=== PATIENT | female | born 1960 | race Caucasian/White ===

== ENCOUNTER 2016-07-25 12:41 | Emergency (ER) | payer MEDICARE, MEDICAID ==
[2016-07-25] MEDS ORDERED: IPRATROPIUM/ALBUTEROL 0.5-2.5 MG/3 ML AMPUL NEB ONE (12:57)
--- NOTE | 2016-07-25 12:58 | ER Document Report ---
ED Medical Screen (RME) - General Stated Complaint: DIFFICULTY BREATHING Notes: onset: monday difficulty breathing, SOB and, congestion, nonproductive cough, wheezing denies h/o asthma/COPD - Related Data Allergies/Adverse Reactions: No Known Allergies Allergy (Verified 07/25/16 12:54)
--- NOTE | 2016-07-25 14:48 | ER Document Report ---
ED Respiratory Problem - General Mode of Arrival: Ambulatory Information source: Patient TRAVEL OUTSIDE OF THE [place] IN LAST 30 DAYS: No - HPI Patient complains to provider of: Cough, Other - congestion Onset: Other - x2 days Duration: Worse/persistent Quality of pain: No pain Associated symptoms: Other - see narrative <CYRIL OCAMPO - Last Filed: 07/25/16 15:57> <ISRAEL BETANCOURT - Last Filed: 07/28/16 01:21> - General Chief Complaint: Breathing Difficulty Stated Complaint: DIFFICULTY BREATHING Notes: Patient is a 55-year-old female that presents to the emergency department today with complaints of nasal congestion with a cough for 2 days. Patient states she has tried TheraFlu cold and [place] cold with minimal relief. Patient states she is not sure when her last menstrual period was but she is still having periods monthly. Patient states her cough worsens at night. Patient states she thinks she is wheezing. Patient denies any sick contacts, fevers, history of asthma, nausea, vomiting, or diarrhea. Patient states none of the dswh-sst-rxgnffz medication she is taking had a decongestant in them. (CYRIL OCAMPO) - Related Data Allergies/Adverse Reactions: No Known Allergies Allergy (Verified 07/25/16 12:54) Past Medical History - General Information source: Patient - Social History Smoking Status: Never Smoker Cigarette use (# per day): No Chew tobacco use (# tins/day): No Frequency of alcohol use: None Drug Abuse: None Lives with: Spouse/Significant other Family History: Reviewed & Not Pertinent Patient has suicidal ideation: No Patient has homicidal ideation: No Pulmonary Medical History: Denies: Hx Asthma Neurological Medical History: Reports: Hx Migraine Surgical Hx: Negative <CYRIL OCAMPO - Last Filed: 07/25/16 15:57> Review of Systems - Review of Systems Constitutional: denies: Fever EENT: See HPI, Nose congestion, Nose discharge, Sinus discharge Cardiovascular: No symptoms reported Respiratory: See HPI, Cough, Wheezing Gastrointestinal: denies: Diarrhea, Nausea, Vomiting Genitourinary: No symptoms reported Female Genitourinary: No symptoms reported Musculoskeletal: No symptoms reported Skin: No symptoms reported Hematologic/Lymphatic: No symptoms reported Neurological/Psychological: No symptoms reported -: Yes All other systems reviewed and negative <CYRIL OCAMPO - Last Filed: 07/25/16 15:57> Physical Exam <CYRIL OCAMPO - Last Filed: 07/25/16 15:57> <ISRAEL BETANCOURT - Last Filed: 07/28/16 01:21> - Vital signs Vitals: Temp Pulse Resp BP Pulse Ox 98.2 F 110 H 24 H 143/85 H 96 07/25/16 12:56 07/25/16 12:56 07/25/16 12:56 07/25/16 12:56 07/25/16 12:56 (CYRIL OCAMPO) (ISRAEL BETANCOURT) - Notes Notes: Physical Exam: General: Alert, appears well. HEENT: Normocephalic. Atraumatic. PERRL. Extraocular movements intact. Oropharynx clear. Sinus congestion, clear rhinorrhea. No posterior pharynx erythema or exudate. Neck: Supple. Non-tender. Respiratory: No respiratory distress. Expiratory wheeze bilaterally. Cardiovascular: Regular rate and rhythm. Abdominal: Normal Inspection. Non-tender. No distension. Normal Bowel Sounds. Back: Non-tender. No deformity or step off. Extremities: Moves all four extremities. Upper extremities: Normal inspection. Normal ROM. Lower extremities: Normal inspection. No edema. Normal ROM. Neurological: Normal cognition. AAOx4. Normal speech. Psychological: Normal affect. Normal Mood. Skin: Warm. Dry. Normal color. (CYRIL OCAMPO) Course - Laboratory Result Diagrams: 07/25/16 15:30 07/25/16 15:30 <DAMARISJEREMÍASCYRIL - Last Filed: 07/25/16 15:57> - Laboratory Result Diagrams: 07/25/16 15:30 07/25/16 15:30 <ISRAEL BETANCOURT - Last Filed: 07/28/16 01:21> - Re-evaluation Re-evalutation: 07/25/16 16:27 I personally performed the services described in the documentation, reviewed and edited the documentation which was dictated to my scribe in my presence, and it accurately records my words and actions. Patient presents emergency department with a 3-4 day history of cough nasal congestion and wheezing. Denies any underlying medical problems. Is wheezing on examination after breathing treatment improved. No history of asthma COPD or CHF. Says she is very nasally congestion when she lays down she can't breathe. No headache blurred vision or double vision no fever or chills earache did have a sore throat couple days ago which is improved. No difficulty breathing or swallowing no chest pain pressure recent travel history of surgery mobilization DVT or pulmonary emboli. Initially on examination she was slightly tachycardic in the Neck. Chest x-ray is negative laboratory evaluation is negative. Well- appearing nontoxic no acute distress oxygen is normal no clinical concerns for pulmonary embolus. We will DC on albuterol inhaler steroids prednisone one day follow-up primary care physician structures to stop smoking discussed reasons for ED return sooner (ISRAEL BETANCOURT) - Vital Signs Vital signs: Temp Pulse Resp BP Pulse Ox 98.1 F 97 24 H 128/85 H 92 07/25/16 16:31 07/25/16 16:31 07/25/16 12:56 07/25/16 16:31 07/25/16 16:31 (CYRIL OCAMPO) (ISRAEL BETANCOURT) - Laboratory Laboratory results interpreted by me: 07/25/16 15:30 Seg Neutrophils % 82.8 H Lymphocytes % 6.5 L Absolute Neutrophils 8.5 H (ISRAEL BETANCOURT) Discharge <CYRIL OCAMPO - Last Filed: 07/25/16 15:57> <ISRAEL BETANCOURT - Last Filed: 07/28/16 01:21> - Discharge Clinical Impression: Upper respiratory infection Qualifiers: URI type: unspecified viral URI Qualified Code(s): J06.9 - Acute upper respiratory infection, unspecified Condition: Stable Disposition: HOME, SELF-CARE Additional Instructions: Upper Respiratory Illness You have a viral infection of the respiratory passages -- a "cold." This common infection causes nasal congestion, drainage, and often sore throat and cough. It is caused by a virus and is highly contagious. The disease usually lasts a week or more, though the worst symptoms are usually over in 3 or 4 days. There is no "cure" for the viral infection -- it must run its course. If there is a complication, such as bacterial infection in the nose, sinuses, middle ear, or bronchial tubes, antibiotics may be required, but antibiotics won 't affect the virus. If you smoke, you should STOP!! Drink plenty of fluids. A humidifier may help. An expectorant medication or decongestant may make you more comfortable. Use acetaminophen or ibuprofen for fever or aches. See the doctor if fever persists over two or three days, if there is any significant worsening of your symptoms, or if you simply fail to improve as expected. Prescriptions: Albuterol Sulfate [Proair HFA Inhalation Aerosol 8.5 gm MDI] 2 puff IH Q4H PRN # 1 mdi PRN Reason: Prednisone [Deltasone 20 mg Tablet] 3 tab PO DAILY 5 Days Referrals: [facility] [Provider Group] - Follow up as needed (Follow-up for recheck and reevaluation tomorrow return for increasing worsening or new symptoms) Scribe Documentation <CYRIL OCAMPO - Last Filed: 07/25/16 15:57> <ISRAEL BETANCOURT - Last Filed: 07/28/16 01:21> - Scribe Written by Scribe:: ISRAEL BETANCOURT DO, SCRIBE 07/25/16 [id number] Acting as scribe for: Bassam (CYRIL OCAMPO) (ISRAEL BETANCOURT)
[2016-07-25 15:49] LABS: ABSOLUTE BASOPHILS # (AUTO) 0.1 10^3/uL (0.0-0.2); ABSOLUTE EOSINOPHILS # (AUTO) 0.1 10^3/uL (0.0-0.6); ABSOLUTE LYMPHOCYTES (AUTO) 0.7 10^3/uL (0.5-4.7); ABSOLUTE MONOCYTES (AUTO) 0.9 10^3/uL (0.1-1.4); ABSOLUTE NEUT (AUTO) 8.5 10^3/uL (1.7-8.2); BASOPHILS % (AUTO) 0.7 % (0-2); EOSINOPHILS % (AUTO) 1.2 % (0-6); HEMATOCRIT 40.2 % (36.0-47.0); HEMOGLOBIN 13.1 g/dL (12.0-15.5); HGB HCT DIFFERENCE -0.9; LYMPHOCYTES % (AUTO) 6.5 % (13-45); MEAN CORPUSCULAR HEMOGLOBIN 27.5 pg (27.0-33.4); MEAN CORPUSCULAR HGB CONC 32.6 g/dL (32.0-36.0); MEAN CORPUSCULAR VOLUME 84 fl (80-97); MONOCYTES % (AUTO) 8.8 % (3-13); RED BLOOD COUNT 4.77 10^6/uL (3.72-5.28); SEGMENTED NEUTROPHILS % (AUTO) 82.8 % (42-78); WHITE BLOOD COUNT 10.3 10^3/uL (4.0-10.5)
[2016-07-25 16:06] LABS: ALANINE AMINOTRANSFERASE 47 U/L (9-52); ALKALINE PHOSPHATASE 110 U/L (38-126); ANION GAP 12 (5-19); ASPARTATE AMINO TRANSFERASE 24 U/L (14-36); BILIRUBIN,TOTAL 0.4 mg/dL (0.2-1.3); BLOOD UREA NITROGEN 10 mg/dL (7-20); CALCIUM 9.8 mg/dL (8.4-10.2); CARBON DIOXIDE 28 mmol/L (22-30); CHLORIDE 99 mmol/L (98-107); CREATININE RESULT 0.68 mg/dL (0.52-1.25); GLUCOSE 109 mg/dL (75-110); POTASSIUM 4.3 mmol/L (3.6-5.0); SODIUM 139.3 mmol/L (137-145); TOTAL PROTEIN 6.8 g/dL (6.3-8.2)
[2016-07-25 16:39] VITALS: BP 128/85
== END 2016-07-25 16:41 | disposition home or self-care (01) ==
LOC: ER 12:41
DX: J06.9 Acute upper respiratory infection, unspecified (principal); B97.89 Other viral agents as the cause of diseases classified elsewhere; R09.81 Nasal congestion; R05 Cough; J34.89 Other specified disorders of nose and nasal sinuses; R06.2 Wheezing
CPT/HCPCS: 94640; 99285; 36415; 85025; 80053; 71020; A9270; J7620

== ENCOUNTER 2018-02-03 13:53 | Inpatient (IN) | payer MEDICARE, MEDICAID ==
[2018-02-03] MEDS ORDERED: ONDANSETRON HCL INJ/PF 4 MG/2 ML SDV IV ONE (15:02)
--- NOTE | 2018-02-03 15:03 | ER Document Report ---
ED General - General Chief Complaint: Ear Pain Stated Complaint: EAR PAIN Time Seen by Provider: 02/03/18 14:52 TRAVEL OUTSIDE OF THE [place] IN LAST 30 DAYS: No - HPI Notes: Patient is a 57-year-old female with a history of GERD who presents to the ED with spouse complaining of weakness, pallor, sweats, left ear pain, and ?abd pain that began when she was at work a couple hours ago. Spouse states that she is acting very weak and had to pick her up from work. Spouse states that she was acting normally yesterday. Patient states that her whole body hurts, but primarily focuses to the abdomen and to her left ear. She has not been swimming recently. Denies any drug allergies, smoking, IV drug use. Pt is being a poor historian currently, and b/w her and her spouse denies any headache , fever, head injury, neck pain, changes in vision/mentation/hearing, URI, sore throat, chest pain, cough, shortness of breath, dyspnea, dysuria, hematuria, loss of control of bowel or bladder, numbness/tingling, muscle paralysis, or rash. - Related Data Allergies/Adverse Reactions: No Known Allergies Allergy (Verified 02/03/18 13:54) Past Medical History - Social History Smoking Status: Never Smoker Family History: Reviewed & Not Pertinent Pulmonary Medical History: Denies: Hx Asthma Neurological Medical History: Reports: Hx Migraine Renal/ Medical History: Denies: Hx Peritoneal Dialysis Past Surgical History: Reports: Hx Orthopedic Surgery Review of Systems - Review of Systems -: Yes All other systems reviewed and negative Physical Exam - Vital signs Vitals: Temp Pulse Resp BP Pulse Ox 97.6 F 108 H 24 H 107/63 95 02/03/18 14:12 02/03/18 14:12 02/03/18 14:12 02/03/18 14:12 02/03/18 14:12 - Notes Notes: PHYSICAL EXAMINATION: accompanied by female nurse GENERAL: pt is diaphoretic and pale HEAD: Atraumatic, normocephalic. Non-tender. No paige sign EYES: Pupils equal round and reactive to light, extraocular movements intact, sclera anicteric, conjunctiva are normal. No raccoon eyes/entrapment. ENT: TM's intact b/l without erythema, fluid, or perforation. + mild tenderness and swelling within the EAC, lt. Rt EAC wnl. Nares patent and without discharge. oropharynx clear without exudates. No tonsilar hypertrophy or erythema. Moist mucous membranes. No sinus tenderness. No hemotympanum NECK: Normal range of motion, supple without lymphadenopathy. No rigidity/ meningismus. No midline tenderness. Chest: No flail chest. equal rise/fall. LUNGS: Breath sounds clear to auscultation bilaterally and equal. No wheezes rales or rhonchi. HEART: Regular rate and rhythm without murmurs, rubs, gallops. ABDOMEN: Soft, nontender, nondistended abdomen. No guarding, no rebound. No masses appreciated. Normal bowel sounds present. Musculoskeletal: Ext's b/l: FROM to passive/active. Strength 5+/5. No deficits noted. No bony tenderness of extremities. Extremities: No cyanosis, clubbing, or edema b/l. Peripheral pulses 2+. Capillary refill less than 2 seconds. NEUROLOGICAL: GCS 15. Cranial nerves grossly intact. Speech is soft, but understandable w/o obvious slurring. Normal sensory, motor exams. Reflexes 2+ b/l. pt able to walk 3-4 steps in the exam room. PSYCH: Normal mood, normal affect. SKIN: pallor Course - Re-evaluation Re-evalutation: 02/03/18 15:17 Upon immediate evaluation, it was noted pt to be pallor and diaphoretic. It is currently difficult to get straight answers from the patient at this time. I did consult immediately with Dr. Kwong who also came to eval the patient. We will perform a complete work up and have her go to CT for the head once IV access is obtained. Rectal temp also ordered. 02/03/18 16:52 CT neg/CXR neg. Dr. Kwong and myself evaluated the patient again and were able to have her ambulate in the room. Core temp continues to be hypothermic by rectal temp and a Jak hugger and warm fluids have been running. We currently have mild AMS with hypothermia w/o obvious source so we will be performing a spinal tap. Rocephin has been ordered and cultures are pending. 02/03/18 18:30 Dr. Kwong attempted spinal tap x2 unsuccessfully. he called anesthesiology who came and performed a spinal tap, but was only able to get a very small amount in 1 tube. Lab is still able to perform a C&S, gram stain, and cell count. Reviewed case with Dr. Kwong again and we will plan for admit. Lab work, urine, and imaging generally unremarkable aside from elevated WBC with left shift, no bands. 02/03/18 19:24 Dr. Tee accepted patient to [facility]. Added TSH and 2nd trop to labs. - Vital Signs Vital signs: Temp Pulse Resp BP Pulse Ox 98.5 F 108 H 22 H 120/82 94 02/03/18 19:01 02/03/18 14:12 02/03/18 19:01 02/03/18 19:00 02/03/18 19:01 - Laboratory Result Diagrams: 02/03/18 15:16 02/03/18 15:16 Laboratory results interpreted by me: 02/03/18 02/03/18 02/03/18 14:48 15:16 15:16 WBC 15.8 H RDW 14.3 H Seg Neutrophils % 80.4 H Lymphocytes % 12.1 L Absolute Neutrophils 12.7 H Carbon Dioxide 20 L Glucose 169 H POC Glucose 165 H Calcium 10.3 H Salicylates Acetaminophen 02/03/18 15:16 WBC RDW Seg Neutrophils % Lymphocytes % Absolute Neutrophils Carbon Dioxide Glucose POC Glucose Calcium Salicylates < 1.0 L Acetaminophen < 10 L Discharge - Discharge Clinical Impression: Weakness Altered mental status Qualifiers: Altered mental status type: unspecified Qualified Code(s): R41.82 - Altered mental status, unspecified Hypothermia Qualifiers: Encounter type: initial encounter Qualified Code(s): T68.XXXA - Hypothermia, initial encounter Condition: Stable Disposition: ADMITTED INPATIENT Admitting Provider: Hospitalist - Dr. Tee Unit Admitted: [facility]
[2018-02-03 15:37] LABS: ABSOLUTE BASOPHILS # (AUTO) 0.1 10^3/uL (0.0-0.2); ABSOLUTE EOSINOPHILS # (AUTO) 0.1 10^3/uL (0.0-0.6); ABSOLUTE LYMPHOCYTES (AUTO) 1.9 10^3/uL (0.5-4.7); ABSOLUTE NEUT (AUTO) 12.7 10^3/uL (1.7-8.2); BASOPHILS % (AUTO) 0.7 % (0-2); EOSINOPHILS % (AUTO) 0.6 % (0-6); HEMATOCRIT 41.5 % (36.0-47.0); LYMPHOCYTES % (AUTO) 12.1 % (13-45); MEAN CORPUSCULAR HEMOGLOBIN 27.7 pg (27.0-33.4); MEAN CORPUSCULAR HGB CONC 33.6 g/dL (32.0-36.0); MEAN CORPUSCULAR VOLUME 83 fl (80-97); MONOCYTES % (AUTO) 6.2 % (3-13); PLATELET COUNT 301 10^3/uL (150-450); RED BLOOD COUNT 5.03 10^6/uL (3.72-5.28); RED CELL DISTRIBUTION WIDTH 14.3 % (11.5-14.0); SEGMENTED NEUTROPHILS % (AUTO) 80.4 % (42-78); TOTAL CELLS COUNTED % (AUTO) 100 %; WHITE BLOOD COUNT 15.8 10^3/uL (4.0-10.5)
[2018-02-03 15:38] LABS: VENOUS BLOOD BASE EXCESS -3.4 mmol/L; VENOUS BLOOD HCO3 21.4 mmol/L (20-32); VENOUS BLOOD PCO2 38.1 mmHg (35-63); VENOUS BLOOD PH 7.37 (7.30-7.42)
--- NOTE | 2018-02-03 15:44 | RADIOLOGY REPORT (SQ) ---
EXAM DESCRIPTION: CHEST SINGLE VIEW COMPLETED DATE/TIME: 02/03/2018 3:34 pm REASON FOR STUDY: weakness COMPARISON: 07/25/2016 EXAM PARAMETERS: NUMBER OF VIEWS: One view. TECHNIQUE: Single frontal radiographic view of the chest acquired. RADIATION DOSE: NA LIMITATIONS: None. FINDINGS: LUNGS AND PLEURA: No acute opacities, masses or pneumothorax. No pleural effusion. MEDIASTINUM AND HILAR STRUCTURES: Stable. HEART AND VASCULAR STRUCTURES: Heart normal in size. Normal vasculature. BONES: No acute findings. HARDWARE: None in the chest. OTHER: No other significant finding. IMPRESSION: NO ACUTE RADIOGRAPHIC FINDING IN THE CHEST. TECHNICAL DOCUMENTATION: JOB ID: [id number] [place]-72 2010 [employer]- All Rights Reserved Reading location - IP/workstation name: [email or web address]
[2018-02-03 15:45] LABS: INTERNATIONAL RATION (INR) 0.88; PROTHROMBIN TIME 12.4 SEC (11.4-15.4)
[2018-02-03 15:46] LABS: PARTIAL THROMBOPLASTIN TIME 27.5 SEC (23.5-35.8)
--- NOTE | 2018-02-03 15:48 | RADIOLOGY REPORT (SQ) ---
EXAM DESCRIPTION: CT HEAD WITHOUT COMPLETED DATE/TIME: 02/03/2018 3:36 pm REASON FOR STUDY: weakness, diaphoresis COMPARISON: None. TECHNIQUE: Axial images acquired through the brain without intravenous contrast. Images reviewed wi th bone, brain and subdural windows. Images stored on PACS. All CT scanners at this facility use dose modulation, iterative reconstruction, and/or weight based d osing when appropriate to reduce radiation dose to as low as reasonably achievable (ALARA). [facility]: Dose Right [facility]: CareDose [facility]: Dose Right [facility]: Teradose 4D [facility]: Smart K[employer] RADIATION DOSE: CT Rad equipment meets quality standard of care and radiation dose reduction techniq ues were employed. CTDIvol: 53.2 mGy. DLP: 964 mGy-cm. mGy. LIMITATIONS: None. FINDINGS: VENTRICLES: Normal size and contour. CEREBRUM: No masses. No hemorrhage. No midline shift. No evidence for acute infarction. Normal gra y/white matter differentiation. Age-appropriate white matter. CEREBELLUM: No masses. No hemorrhage. No alteration of density. No evidence for acute infarction. EXTRAAXIAL SPACES: No fluid collections. No masses. ORBITS AND GLOBE: No intra- or extraconal masses. Normal contour of globe without masses. CALVARIUM: No fracture. PARANASAL SINUSES: No fluid or mucosal thickening. SOFT TISSUES: No mass or hematoma. OTHER: No other significant finding. IMPRESSION: No acute intracranial findings. EVIDENCE OF ACUTE STROKE: NO. COMMENT: Quality ID # [id number]: Final reports with documentation of one or more dose reduction techniques (e.g., Automated exposure control, adjustment of the mA and/or kV according to patient size, use of iterative reconstruction technique) TECHNICAL DOCUMENTATION: JOB ID: [id number] [place]-[id number] 2010 [employer]- All Rights Reserved Reading location - IP/workstation name: [email or web address]
[2018-02-03] MEDS: NORMAL SALINE 1000 ML 1,000 ML IV PRN ×3 (15:54→23:36)
[2018-02-03 15:59] LABS: ALANINE AMINOTRANSFERASE 32 U/L (9-52); ALBUMIN 4.5 g/dL (3.5-5.0); ALKALINE PHOSPHATASE 105 U/L (38-126); ANION GAP 16 (5-19); ASPARTATE AMINO TRANSFERASE 19 U/L (14-36); BILIRUBIN,DIRECT 0.3 mg/dL (0.0-0.4); BILIRUBIN,TOTAL 0.5 mg/dL (0.2-1.3); BLOOD UREA NITROGEN 18 mg/dL (7-20); CALCIUM 10.3 mg/dL (8.4-10.2); CARBON DIOXIDE 20 mmol/L (22-30); CHLORIDE 104 mmol/L (98-107); CREATINE KINASE 51 U/L (30-135); GLUCOSE 169 mg/dL (75-110); LIPASE 116.6 U/L (23-300); POTASSIUM 4.2 mmol/L (3.6-5.0); SODIUM 140.4 mmol/L (137-145); TOTAL PROTEIN 7.3 g/dL (6.3-8.2)
[2018-02-03 16:08] LABS: CREATINE KINASE MB 0.48 ng/mL (<4.55); TROPONIN I < 0.012 ng/mL
[2018-02-03 16:13] LABS: APPEARANCE,URINE SLIGHTLY-CLOUDY; BILIRUBIN,URINE NEGATIVE (NEGATIVE); COLOR,URINE YELLOW; GLUCOSE, URINE NEGATIVE (NEGATIVE); KETONES,URINE NEGATIVE (NEGATIVE); LEUKOCYTE ESTERASE,URINE NEGATIVE (NEGATIVE); NITRITE,URINE NEGATIVE (NEGATIVE); PROTEIN,URINE NEGATIVE (NEGATIVE); URINE SPECIFIC GRAVITY 1.016; UROBILINOGEN,URINE NEGATIVE mg/dL (<2.0)
[2018-02-03 16:25] LABS: URINE AMPHETAMINES SCREEN NEGATIVE; URINE BARBITURATES SCREEN NEGATIVE; URINE BENZODIAZEPINES SCREEN NEGATIVE; URINE COCAINE SCREEN NEGATIVE; URINE MARIJUANA (THC) SCREEN UNCONFIRMED POSITIVE; URINE METHADONE SCREEN NEGATIVE; URINE PHENCYCLIDINE SCREEN NEGATIVE
[2018-02-03] MEDS ORDERED: LIDOCAINE 1% INJ-PF (10 MG/ML) 30 ML SDV INJ ONE (16:50)
[2018-02-03] MEDS ORDERED: CEFTRIAXONE 1 GM/D5W RTU 1 GM/50 ML RTUPB IV ONE (16:51)
[2018-02-03 17:01] LABS: ACETAMINOPHEN < 10 ug/mL (10-30); SALICYLATE < 1.0 mg/dL (2.0-20.0)
[2018-02-03 19:25] LABS: CSF TUBE NUMBER 4
[2018-02-03 19:26] LABS: APPEARANCE TUBE 4 CLEAR; COLOR TUBE 4 COLORLESS
[2018-02-03 19:27] LABS: CSF TOTAL VOLUME 0.2 CC; VOLUME TUBE 4 0.2 CC
[2018-02-03 19:40] LABS: RED BLOOD CELL,CSF 950 /uL (0-10); WHITE BLOOD CELL,CSF 9 /uL (0-5)
[2018-02-03] MEDS ORDERED: CEFTRIAXONE INJ 1000 MG VIAL ONE (20:04)
[2018-02-03] MEDS ORDERED: HEPARIN SOD (PORCINE) 5,000 UNIT/ML 1 ML SYRINGE SUBCUT SCH (22:00)
--- NOTE | 2018-02-03 22:28 | PDOC H&P ---
History of Present Illness Admission Date/PCP: 02/03/18 19:54 Patient complains of: Feeling weak History of Present Illness: ABNER RAYMOND is a 57 year old who has developmental delay. She cleans houses for a living. Today while on her knees cleaning her house she started to feel sweaty. She tells me that she was going in and out of cold houses into the hot outdoors and she feels like that made her dizzy. When she began to feel sweaty her boss called her who came to pick her up. He got her into the car to bring her to the hospital. He states that she was pale, sweaty appearing, not able to speak normally. She never lost consciousness. In the ER she was found to be hypothermic. Her complaints to the ER and to me have been nonspecific. She is stating that she just does not feel good. She does not identify any particular area of pain. All of the events of today. She feels generally weak. Her states that her speech was less than normal and also not is comprehensible is normal but he feels that it is getting back to normal now. The ER has performed a number of tests and studies and there has been no identifying culprit for her symptoms. She does have an elevated white blood cell count. Her vitals have normalized. She is starting to speak more normally. She will be admitted to the hospitalist service for acute encephalopathy and hypothermia. Past Medical History Cardiac Medical History: Denies: Congestive Heart Failure, Coronary Artery Disease Pulmonary Medical History: Denies: Asthma, Chronic Obstructive Pulmonary Disease (COPD) EENT Medical History: Reports: None Neurological Medical History: Reports: Migraine Endocrine Medical History: Reports: None Renal/ Medical History: Denies: Chronic Kidney Disease Malignancy Medical History: Reports: None GI Medical History: Reports: Gastroesophageal Reflux Disease Musculoskeltal Medical History: Reports: None Skin Medical History: Reports: None Psychiatric Medical History: Denies: Substance Abuse, Tobacco Dependency Traumatic Medical History: Reports: None Hematology: Reports: None Infectious Medical History: Reports: None Past Surgical History Past Surgical History: Reports: Orthopedic Surgery - Patient had some type of back surgery for herniated disc Social History Information Source: Patient, Legal Guardian Lives with: Family Smoking Status: Never Smoker Frequency of Alcohol Use: None Hx Recreational Drug Use: No Drugs: None Hx Prescription Drug Abuse: No Past Social History Note: Patient has developmental delay. She has a long-standing partner/boyfriend who is also her legal guardian mother they met in [place]. He states that they are unable to get because the spouses that both of them were formerly with will not divorce them. Patient comes from [place] and it seems that most of her family is still there. Her life partner, Esa Gruber, is from this area and that is why they moved back to [place]. She works as a campus manager. She has 1 daughter in her 20s and they do not have much information about her at this time. - Advance Directive Resuscitation Status: Full Code Surrogate healthcare decision maker:: Patient name is Esa Gruber as her healthcare proxy. His phone number is [phone] Family History Parental Family History Reviewed: Yes - Mother with some type of cancer. Father lives in [place],? health status Children Family History Reviewed: Yes - 1 daughter in her 20s that they think is healthy, they do not have much information about her Sibling(s) Family History Reviewed.: Yes - One sister has Downs syndrome and lives in [place] Medication/Allergy Home Medications: Albuterol Sulfate [Proair HFA Inhalation Aerosol 8.5 gm MDI] 2 puff IH Q4H PRN # 1 mdi 07/25/16 Prednisone [Deltasone 20 mg Tablet] 3 tab PO DAILY 5 Days tablet 07/25/16 Allergies/Adverse Reactions: hydrocodone Allergy (Intermediate, Verified 02/03/18 22:18) Itching Review of Systems Constitutional: PRESENT: chills, fatigue Eyes: ABSENT: visual disturbances Ears: PRESENT: hearing changes Nose, Mouth, and Throat: ABSENT: sore throat Cardiovascular: ABSENT: chest pain, dyspnea on exertion, edema, orthropnea, palpitations Respiratory: ABSENT: cough, dyspnea Gastrointestinal: ABSENT: abdominal pain, nausea, vomiting Genitourinary: ABSENT: dysuria Musculoskeletal: PRESENT: muscle weakness. ABSENT: back pain Integumentary: PRESENT: diaphoresis. ABSENT: erythema, lesions Neurological: PRESENT: abnormal speech. ABSENT: abnormal movements, convulsions , dizziness, frequent falls, numbness, syncope, tingling Psychiatric: ABSENT: anxiety Endocrine: ABSENT: cold intolerance, heat intolerance Hematologic/Lymphatic: ABSENT: easy bleeding, easy bruising Physical Exam Vital Signs: Temp Pulse Resp BP Pulse Ox 98.4 F 108 H 27 H 122/88 H 95 02/03/18 22:01 02/03/18 14:12 02/03/18 22:01 02/03/18 22:00 02/03/18 22:01 General appearance: PRESENT: no acute distress, cooperative, obese Head exam: PRESENT: atraumatic, normocephalic Eye exam: PRESENT: EOMI. ABSENT: conjunctival injection, scleral icterus Ear exam: PRESENT: normal external ear exam Mouth exam: PRESENT: moist, tongue midline Respiratory exam: PRESENT: clear to auscultation jb, unlabored. ABSENT: rales , rhonchi, wheezes Cardiovascular exam: PRESENT: RRR. ABSENT: diastolic murmur, systolic murmur Pulses: PRESENT: normal radial pulses GI/Abdominal exam: PRESENT: normal bowel sounds, soft. ABSENT: distended, firm , guarding, tenderness Rectal exam: ABSENT: deferred Gentrourinary exam: ABSENT: indwelling catheter Extremities exam: ABSENT: pedal edema Musculoskeletal exam: ABSENT: deformity Neurological exam: PRESENT: alert, awake, oriented to person, oriented to place , oriented to situation Psychiatric exam: PRESENT: appropriate affect. ABSENT: anxious Skin exam: PRESENT: dry, intact, warm Results Laboratory Results: 02/03/18 21:20 Troponin I < 0.012 Impressions: Chest X-Ray 02/03/18 14:58 IMPRESSION: NO ACUTE RADIOGRAPHIC FINDING IN THE CHEST. Head CT 02/03/18 15:09 IMPRESSION: No acute intracranial findings. EVIDENCE OF ACUTE STROKE: NO. Assessment & Plan - Diagnosis (1) Acute encephalopathy Is this a current diagnosis for this admission?: Yes Plan: Patient had acute mental status change, unknown whether this was a toxic or metabolic insult. It is also possible that the patient had a vasovagal episode. Lab studies have not revealed a clear etiology of her changes. Does have a leukocytosis. CT scan of the head was negative. Chest x-ray negative for acute pulmonary process. LP, urine culture, blood cultures all pending. Patient's mental status is coming back to normal per her . She does remember the events of today. We will continue to fluid hydrate her and as studies come back we will alter therapy based on results. Now she is being admitted to the stepdown unit for close monitoring. (2) Hypothermia Qualifiers: Encounter type: initial encounter Qualified Code(s): T68.XXXA - Hypothermia , initial encounter Is this a current diagnosis for this admission?: Yes Plan: Patient is now normothermic. We will monitor her temperature closely. She is receiving IV fluids periods blood and urine cultures pending, LP pending. She is on telemetry. Not entirely clear etiology of hypothermia at this time. (3) Weakness Is this a current diagnosis for this admission?: Yes Plan: Not entirely clear etiology. CT scan of the head negative for acute changes. Will order MRI brain to assess for lesions not visible on CT scan. Strength is returning. There is no focal neurologic deficit. She is able to move all extremities spontaneously. Per speech is returning to normal. - Time Time Spent: 50 to 70 Minutes Medications reviewed and adjusted accordingly: Yes Anticipated discharge: Home - Inpatient Certification Based on my medical assessment, after consideration of the patient's comorbidities, presenting symptoms, or acuity I expect that the services needed warrant INPATIENT care.: Yes I certify that my determination is in accordance with my understanding of Medicare's requirements for reasonable and necessary INPATIENT services [42 CFR 412.3e].: Yes Medical Necessity: Need Close Monitoring Due to Risk of Patient Decompensation, Need For IV Fluids
[2018-02-04 00:48] LABS: HEMATOCRIT 36.5 % (36.0-47.0); HEMOGLOBIN 12.3 g/dL (12.0-15.5); MEAN CORPUSCULAR HEMOGLOBIN 27.8 pg (27.0-33.4); MEAN CORPUSCULAR HGB CONC 33.9 g/dL (32.0-36.0); MEAN CORPUSCULAR VOLUME 82 fl (80-97); PLATELET COUNT 265 10^3/uL (150-450); RED BLOOD COUNT 4.45 10^6/uL (3.72-5.28); RED CELL DISTRIBUTION WIDTH 14.2 % (11.5-14.0); WHITE BLOOD COUNT 15.9 10^3/uL (4.0-10.5)
--- NOTE | 2018-02-04 03:10 | EKG REPORT ---
SEVERITY:- BORDERLINE ECG - SINUS RHYTHM BORDERLINE T ABNORMALITIES, ANTERIOR LEADS BORDERLINE PROLONGED QT INTERVAL : Confirmed by: Aimee Gonsales MD 04-Feb-2018 03:09:11
[2018-02-04] MEDS ORDERED: ONDANSETRON HCL INJ/PF 4 MG/2 ML SDV ONE (04:11)
--- NOTE | 2018-02-04 04:41 | RADIOLOGY REPORT (SQ) ---
EXAM DESCRIPTION: CT HEAD WITHOUT IV CONTRAST COMPLETED DATE/TME: 02/04/2018 00:00 CLINICAL HISTORY: Weakness COMPARISON: 02/03/2018 TECHNIQUE: Axial CT of the head obtained from the skull apex to the skull base without contrast. FINDINGS: No acute intracranial hemorrhage identified. No mass, mass effect, shift of the midline, abnormal extra-axial fluid collection or CT evidence of acute ischemic change identified. The ventricular system is unremarkable. No acute abnormalities of the supratentorial white matter, basal ganglia, cerebellum, or brainstem. The visualized paranasal sinuses and the mastoids are clear. No skull fracture identified. Visualized orbits and globes are unremarkable. DLP:1017.17 mGy-cm IMPRESSION: 1. No acute intracranial abnormality identified. This exam was performed according to our departmental dose-optimization program, which includes automated exposure control, adjustment of the mA and/or kV according to patient size and/or use of iterative reconstruction technique.
[2018-02-04 04:53] LABS: ABSOLUTE BASOPHILS # (AUTO) 0.1 10^3/uL (0.0-0.2); ABSOLUTE EOSINOPHILS # (AUTO) 0.1 10^3/uL (0.0-0.6); ABSOLUTE LYMPHOCYTES (AUTO) 1.4 10^3/uL (0.5-4.7); ABSOLUTE NEUT (AUTO) 15.1 10^3/uL (1.7-8.2); BASOPHILS % (AUTO) 0.4 % (0-2); EOSINOPHILS % (AUTO) 0.4 % (0-6); HEMATOCRIT 36.7 % (36.0-47.0); HEMOGLOBIN 12.2 g/dL (12.0-15.5); INTERNATIONAL RATION (INR) 0.93; LYMPHOCYTES % (AUTO) 8.2 % (13-45); MEAN CORPUSCULAR HEMOGLOBIN 27.4 pg (27.0-33.4); MEAN CORPUSCULAR HGB CONC 33.3 g/dL (32.0-36.0); MEAN CORPUSCULAR VOLUME 82 fl (80-97); MONOCYTES % (AUTO) 5.5 % (3-13); PLATELET COUNT 259 10^3/uL (150-450); PROTHROMBIN TIME 12.9 SEC (11.4-15.4); RED BLOOD COUNT 4.46 10^6/uL (3.72-5.28); RED CELL DISTRIBUTION WIDTH 13.9 % (11.5-14.0); SEGMENTED NEUTROPHILS % (AUTO) 85.5 % (42-78); TOTAL CELLS COUNTED % (AUTO) 100 %; WHITE BLOOD COUNT 17.7 10^3/uL (4.0-10.5)
[2018-02-04 04:54] LABS: PARTIAL THROMBOPLASTIN TIME 32.5 SEC (23.5-35.8)
[2018-02-04 05:26] LABS: BLOOD UREA NITROGEN 13 mg/dL (7-20); CALCIUM 9.4 mg/dL (8.4-10.2); GLUCOSE 108 mg/dL (75-110); POTASSIUM 4.3 mmol/L (3.6-5.0)
[2018-02-04 05:32] LABS: ANION GAP 13 (5-19); CARBON DIOXIDE 21 mmol/L (22-30); CHLORIDE 105 mmol/L (98-107); SODIUM 138.8 mmol/L (137-145)
[2018-02-04 05:35] LABS: CREATINE KINASE MB 0.45 ng/mL (<4.55)
[2018-02-04 05:41] LABS: TROPONIN I < 0.012 ng/mL
[2018-02-04] MEDS ORDERED: PIPERACILLIN/TAZOBACTAM 3.375 GM VIAL IV PRN (07:10)
[2018-02-04] MEDS ORDERED: PIPERACILLIN/TAZOBACTAM 3.375 GM VIAL IV ONE (07:15)
[2018-02-04] MEDS: LANSOPRAZOLE 30 MG TAB.RAP.DR PO SCH ×2 (07:36→18:34)
[2018-02-04 08:46] LABS: HEMATOCRIT 35.8 % (36.0-47.0); HEMOGLOBIN 12.2 g/dL (12.0-15.5); MEAN CORPUSCULAR HEMOGLOBIN 27.8 pg (27.0-33.4); MEAN CORPUSCULAR HGB CONC 34.1 g/dL (32.0-36.0); MEAN CORPUSCULAR VOLUME 82 fl (80-97); PLATELET COUNT 268 10^3/uL (150-450); RED BLOOD COUNT 4.39 10^6/uL (3.72-5.28); RED CELL DISTRIBUTION WIDTH 14.4 % (11.5-14.0)
[2018-02-04] MEDS: ONDANSETRON HCL INJ/PF 4 MG/2 ML SDV IV PRN ×2 (09:11→18:35)
--- NOTE | 2018-02-04 10:59 | RADIOLOGY REPORT (SQ) ---
EXAM DESCRIPTION: MRI HEAD WITHOUT COMPLETED DATE/TIME: 02/04/2018 10:40 am REASON FOR STUDY: encephalopathy COMPARISON: CT from same date earlier. This exam qualifies as a separate session for this patient's imaging care and occurred approximately 6 hours after the previous session of cross-sectional imaging care. TECHNIQUE: Multiplanar imaging includes non-contrasted T1, T2, FLAIR, and diffusion with ADC map seq uences. Images stored on PACS. LIMITATIONS: None. FINDINGS: ANATOMY: No anomalies. Normal vascular flow voids. Pituitary fossa normal. CSF SPACES: Normal in size and contour. No hemorrhage. CEREBRUM: Spotty small vessel changes in the white matter. No hemorrhage or mass or shift or hydroce phalus. POSTERIOR FOSSA: No signal alteration. No hemorrhage. No edema, masses or mass effect. Internal surya tory canals, cerebello-pontine angles, mastoids normal. DIFFUSION IMAGING: Negative for acute or sub-acute infarction. ORBITS: No masses. Globes normal. PARANASAL SINUSES: No fluid levels. Mucosa normal. OTHER: No other significant finding. IMPRESSION: No acute or suspicious intracranial abnormality. Mild small vessel disease is suspected . EVIDENCE OF ACUTE STROKE: NO. TECHNICAL DOCUMENTATION: JOB ID: [id number] All Rights Reserved Reading location - IP/workstation name: [email or web address]
[2018-02-04] MEDS: PIPERACILLIN SODIUM/TAZOBACTAM 3.375 GM in NORMAL SALINE 100 ML IV SCH ×2 (11:19→18:35)
[2018-02-04] MEDS: NORMAL SALINE 1000 ML 1,000 ML IV PRN ×2 (11:21→22:50)
[2018-02-04 11:40] LABS: CREATINE KINASE MB 0.48 ng/mL (<4.55)
[2018-02-04 11:44] LABS: TROPONIN I < 0.012 ng/mL
--- NOTE | 2018-02-04 13:31 | PDOC PROGRESS REPORT ---
Subjective Progress Note for:: 02/04/18 Subjective:: Patient was admitted with nonspecific vague symptoms including weakness and generalized malaise and just not feeling herself. It appears she may have an occult infection with an elevated white count however there is no identifiable source of infection at this time most of the information is obtained from the chart as patient has had was unable to provide much information Reason For Visit: HYPOTHERMIA, ACUTE ENCEPHALOPATHY Physical Exam Vital Signs: Temp Pulse Resp BP Pulse Ox 98.8 F 98 20 134/91 H 94 02/04/18 13:11 02/04/18 13:11 02/04/18 13:11 02/04/18 13:11 02/04/18 13:11 Intake & Output 02/03/18 02/04/18 02/05/18 06:59 06:59 06:59 Intake Total 473 677 Output Total 750 400 Balance -277 277 Weight 102 kg General appearance: PRESENT: no acute distress, morbidly obese, well-developed, well-nourished Head exam: PRESENT: atraumatic, normocephalic Mouth exam: PRESENT: dry mucosa Respiratory exam: PRESENT: clear to auscultation jb. ABSENT: rales, rhonchi, wheezes Cardiovascular exam: PRESENT: RRR. ABSENT: diastolic murmur, rubs, systolic murmur GI/Abdominal exam: PRESENT: normal bowel sounds, soft. ABSENT: distended, guarding, mass, organolmegaly, rebound, tenderness Rectal exam: PRESENT: deferred Neurological exam: PRESENT: alert, awake, oriented to place, oriented to time, oriented to situation Psychiatric exam: PRESENT: flat affect Results Laboratory Results: 02/04/18 08:34 02/04/18 04:17 02/04/18 02/04/18 02/04/18 00:40 04:17 04:17 WBC 15.9 H 17.7 H RBC 4.45 4.46 Hgb 12.3 12.2 Hct 36.5 36.7 MCV 82 82 MCH 27.8 27.4 MCHC 33.9 33.3 RDW 14.2 H 13.9 Plt Count 265 259 Seg Neutrophils % 85.5 H Lymphocytes % 8.2 L Monocytes % 5.5 Eosinophils % 0.4 Basophils % 0.4 Absolute Neutrophils 15.1 H Absolute Lymphocytes 1.4 Absolute Monocytes 1.0 Absolute Eosinophils 0.1 Absolute Basophils 0.1 Sodium 138.8 Potassium 4.3 Chloride 105 Carbon Dioxide 21 L Anion Gap 13 BUN 13 Creatinine 0.51 L Est GFR ( Amer) > 60 Est GFR (Non-Af Amer) > 60 Glucose 108 Lactic Acid Calcium 9.4 02/04/18 02/04/18 08:34 08:34 WBC 17.0 H RBC 4.39 Hgb 12.2 Hct 35.8 L MCV 82 MCH 27.8 MCHC 34.1 RDW 14.4 H Plt Count 268 Seg Neutrophils % Lymphocytes % Monocytes % Eosinophils % Basophils % Absolute Neutrophils Absolute Lymphocytes Absolute Monocytes Absolute Eosinophils Absolute Basophils Sodium Potassium Chloride Carbon Dioxide Anion Gap BUN Creatinine Est GFR ( Amer) Est GFR (Non-Af Amer) Glucose Lactic Acid 0.7 Calcium 02/03/18 02/04/18 02/04/18 21:20 04:17 04:49 Creatine Kinase 40 CK-MB (CK-2) 0.45 Troponin I < 0.012 < 0.012 02/04/18 02/04/18 11:03 11:03 Creatine Kinase 37 CK-MB (CK-2) 0.48 Troponin I < 0.012 Impressions: Chest X-Ray 02/03/18 14:58 IMPRESSION: NO ACUTE RADIOGRAPHIC FINDING IN THE CHEST. Head CT 02/04/18 00:00 IMPRESSION: 1. No acute intracranial abnormality identified. This exam was performed according to our departmental dose-optimization program, which includes automated exposure control, adjustment of the mA and/or kV according to patient size and/or use of iterative reconstruction technique. Head MRI 02/04/18 00:00 IMPRESSION: No acute or suspicious intracranial abnormality. Mild small vessel disease is suspected. EVIDENCE OF ACUTE STROKE: NO. Assessment & Plan - Time Time Spent with patient: 15-24 minutes Medications reviewed and adjusted accordingly: Yes Anticipated discharge: Home Within: within 72 hours Disposition: A - Plan Summary Plan Summary: Acute encephalopathy etiology of which is still unclear. CT scan and MRI as well as chest x-ray LP will all negative. We will continue evaluation. 2. Hypothermia-this has resolved. This may be related to occult infection TSH is normal 3. Morbid obesity 4. Questionable sepsis we will continue to look for source of infection
[2018-02-04] MEDS ORDERED: PIPERACILLIN SODIUM/TAZOBACTAM 3.375 GM in NORMAL SALINE 100 ML IV SCH (14:00)
[2018-02-04] MEDS ORDERED: PIPERACILLIN/TAZOBACTAM 3.375 GM VIAL IV SCH (14:00)
--- NOTE | 2018-02-04 18:32 | EKG REPORT ---
SEVERITY:- BORDERLINE ECG - SINUS TACHYCARDIA BORDERLINE T ABNORMALITIES, DIFFUSE LEADS : Confirmed by: Aimee Gonsales MD 04-Feb-2018 18:31:52
[2018-02-04] MEDS: ACETAMINOPHEN 325 MG TABLET PO PRN (19:00)
[2018-02-04] MEDS ORDERED: VANCOMYCIN HCL 1,500 MG in DEXTROSE 5%-WATER 250 ML IV ONE (23:45)
[2018-02-04] MEDS ORDERED: VANCOMYCIN HCL 0 MG in DEXTROSE 5%-WATER 250 ML IV NR (23:45)
[2018-02-04] MEDS ORDERED: VANCOMYCIN HCL INJ 1000 MG VIAL IV PRN (23:58)
[2018-02-05] MEDS ORDERED: VANCOMYCIN HCL INJ 500 MG VIAL ONE (00:12)
[2018-02-05] MEDS ORDERED: VANCOMYCIN HCL INJ 1000 MG VIAL ONE (00:12)
[2018-02-05] MEDS: PIPERACILLIN SODIUM/TAZOBACTAM 3.375 GM in NORMAL SALINE 100 ML IV SCH ×3 (02:51→18:14)
[2018-02-05] MEDS: LANSOPRAZOLE 30 MG TAB.RAP.DR PO SCH ×2 (05:23→18:14)
[2018-02-05 06:31] LABS: ABSOLUTE BASOPHILS # (AUTO) 0.1 10^3/uL (0.0-0.2); ABSOLUTE EOSINOPHILS # (AUTO) 0.2 10^3/uL (0.0-0.6); ABSOLUTE LYMPHOCYTES (AUTO) 1.5 10^3/uL (0.5-4.7); ABSOLUTE MONOCYTES (AUTO) 0.9 10^3/uL (0.1-1.4); ABSOLUTE NEUT (AUTO) 9.2 10^3/uL (1.7-8.2); BASOPHILS % (AUTO) 0.4 % (0-2); EOSINOPHILS % (AUTO) 1.7 % (0-6); HEMATOCRIT 34.3 % (36.0-47.0); HEMOGLOBIN 11.8 g/dL (12.0-15.5); LYMPHOCYTES % (AUTO) 12.5 % (13-45); MEAN CORPUSCULAR HEMOGLOBIN 28.1 pg (27.0-33.4); MEAN CORPUSCULAR HGB CONC 34.3 g/dL (32.0-36.0); MEAN CORPUSCULAR VOLUME 82 fl (80-97); MONOCYTES % (AUTO) 7.7 % (3-13); PLATELET COUNT 253 10^3/uL (150-450); RED BLOOD COUNT 4.18 10^6/uL (3.72-5.28); RED CELL DISTRIBUTION WIDTH 14.2 % (11.5-14.0); SEGMENTED NEUTROPHILS % (AUTO) 77.7 % (42-78); TOTAL CELLS COUNTED % (AUTO) 100 %; WHITE BLOOD COUNT 11.8 10^3/uL (4.0-10.5)
[2018-02-05 06:56] LABS: ANION GAP 7 (5-19); BLOOD UREA NITROGEN 8 mg/dL (7-20); CALCIUM 8.9 mg/dL (8.4-10.2); CARBON DIOXIDE 24 mmol/L (22-30); CHLORIDE 107 mmol/L (98-107); GLUCOSE 101 mg/dL (75-110); POTASSIUM 3.8 mmol/L (3.6-5.0); SODIUM 137.9 mmol/L (137-145)
[2018-02-05] MEDS: BUTALB/ACETAMINOPHEN/CAFFEINE 1 TAB EACH PO PRN ×2 (10:04→18:25)
[2018-02-05] MEDS: ONDANSETRON HCL INJ/PF 4 MG/2 ML SDV IV PRN (10:06)
[2018-02-05] MEDS: NORMAL SALINE 1000 ML 1,000 ML IV PRN ×2 (10:11→21:29)
--- NOTE | 2018-02-05 12:07 | PDOC PROGRESS REPORT ---
Subjective Progress Note for:: 02/05/18 Subjective:: Patient was admitted with nonspecific vague symptoms including weakness and generalized malaise and just not feeling herself. It appears she may have an occult infection with an elevated white count however there is no identifiable source of infection even 48 hours after admission. Aviles cultures have been negative. She has been on Zosyn with a gradual reduction in her white blood cell count from 17.8 to about 11,000 today. Family at bedside today definitely say that patient is improved and she does seem to be much less confused. Reason For Visit: HYPOTHERMIA, ACUTE ENCEPHALOPATHY Physical Exam Vital Signs: Temp Pulse Resp BP Pulse Ox 98.1 F 89 16 132/85 H 97 02/05/18 11:39 02/05/18 11:39 02/05/18 11:39 02/05/18 11:39 02/05/18 11:39 Intake & Output 02/04/18 02/05/18 02/06/18 06:59 06:59 06:59 Intake Total 473 2799 1300 Output Total 750 1550 400 Balance -277 1249 900 Weight 102 kg 106.7 kg General appearance: PRESENT: no acute distress, morbidly obese, well-developed, well-nourished Head exam: PRESENT: atraumatic, normocephalic Eye exam: PRESENT: conjunctiva pink, EOMI, PERRLA. ABSENT: scleral icterus Ear exam: PRESENT: normal external ear exam Mouth exam: PRESENT: tongue midline Neck exam: ABSENT: carotid bruit, JVD, lymphadenopathy, thyromegaly Respiratory exam: PRESENT: clear to auscultation jb. ABSENT: rales, rhonchi, wheezes Cardiovascular exam: PRESENT: RRR. ABSENT: diastolic murmur, rubs, systolic murmur Pulses: PRESENT: normal dorsalis pedis pul Vascular exam: PRESENT: normal capillary refill GI/Abdominal exam: PRESENT: normal bowel sounds, soft. ABSENT: distended, guarding, mass, organolmegaly, rebound, tenderness Rectal exam: PRESENT: deferred Extremities exam: PRESENT: full ROM. ABSENT: calf tenderness, clubbing, pedal edema Neurological exam: PRESENT: alert, awake, oriented to person, oriented to place , oriented to time, oriented to situation, CN II-XII grossly intact. ABSENT: motor sensory deficit Psychiatric exam: PRESENT: appropriate affect, normal mood. ABSENT: homicidal ideation, suicidal ideation Skin exam: PRESENT: dry, intact, warm. ABSENT: cyanosis, rash Results Laboratory Results: 02/05/18 06:13 02/05/18 06:13 02/05/18 02/05/18 06:13 06:13 WBC 11.8 H RBC 4.18 Hgb 11.8 L Hct 34.3 L MCV 82 MCH 28.1 MCHC 34.3 RDW 14.2 H Plt Count 253 Seg Neutrophils % 77.7 Lymphocytes % 12.5 L Monocytes % 7.7 Eosinophils % 1.7 Basophils % 0.4 Absolute Neutrophils 9.2 H Absolute Lymphocytes 1.5 Absolute Monocytes 0.9 Absolute Eosinophils 0.2 Absolute Basophils 0.1 Sodium 137.9 Potassium 3.8 Chloride 107 Carbon Dioxide 24 Anion Gap 7 BUN 8 Creatinine 0.55 Est GFR ( Amer) > 60 Est GFR (Non-Af Amer) > 60 Glucose 101 Calcium 8.9 02/03/18 02/04/18 02/04/18 21:20 04:17 04:49 Creatine Kinase 40 CK-MB (CK-2) 0.45 Troponin I < 0.012 < 0.012 02/04/18 02/04/18 11:03 11:03 Creatine Kinase 37 CK-MB (CK-2) 0.48 Troponin I < 0.012 Impressions: Chest X-Ray 02/03/18 14:58 IMPRESSION: NO ACUTE RADIOGRAPHIC FINDING IN THE CHEST. Head CT 02/04/18 00:00 IMPRESSION: 1. No acute intracranial abnormality identified. This exam was performed according to our departmental dose-optimization program, which includes automated exposure control, adjustment of the mA and/or kV according to patient size and/or use of iterative reconstruction technique. Head MRI 02/04/18 00:00 IMPRESSION: No acute or suspicious intracranial abnormality. Mild small vessel disease is suspected. EVIDENCE OF ACUTE STROKE: NO. Assessment & Plan - Time Time Spent with patient: 15-24 minutes Medications reviewed and adjusted accordingly: Yes Anticipated discharge: Home Within: within 48 hours - Inpatient Certification Based on my medical assessment, after consideration of the patient's comorbidities, presenting symptoms, or acuity I expect that the services needed warrant INPATIENT care.: Yes Medical Necessity: Significant Comorbidiites Make Outpatient Treatment Too Risky , Need for IV Antibiotics - Plan Summary Plan Summary: 1. Acute encephalopathy etiology of which is still unclear. CT scan and MRI as well as chest x-ray LP are all negative. we will continue empiric Zosyn 2. Hypothermia-this has resolved. This may be related to occult infection TSH is normal 3. Morbid obesity 4. Questionable sepsis we will continue to look for source of infection. She definitely had a systemic inflammatory response syndrome which is resolving. Patient has been encouraged to ambulate
[2018-02-05] MEDS ORDERED: VANCOMYCIN HCL 1,000 MG in DEXTROSE 5%-WATER 250 ML IV SCH (14:00)
[2018-02-06] MEDS: PIPERACILLIN SODIUM/TAZOBACTAM 3.375 GM in NORMAL SALINE 100 ML IV SCH ×3 (01:59→18:04)
[2018-02-06] MEDS: BUTALB/ACETAMINOPHEN/CAFFEINE 1 TAB EACH PO PRN (02:03)
[2018-02-06] MEDS: ACETAMINOPHEN 325 MG TABLET PO PRN ×2 (02:55→18:11)
[2018-02-06 05:45] LABS: ANION GAP 9 (5-19); BLOOD UREA NITROGEN 7 mg/dL (7-20); CALCIUM 8.7 mg/dL (8.4-10.2); CARBON DIOXIDE 25 mmol/L (22-30); CHLORIDE 109 mmol/L (98-107); GLUCOSE 94 mg/dL (75-110); POTASSIUM 3.4 mmol/L (3.6-5.0)
[2018-02-06] MEDS: LANSOPRAZOLE 30 MG TAB.RAP.DR PO SCH ×2 (06:42→18:05)
[2018-02-06] MEDS ORDERED: POTASSIUM CHLORIDE 10 MEQ CAPSULE.ER PO ONE (08:00)
[2018-02-06] MEDS: NORMAL SALINE 1000 ML 1,000 ML IV PRN ×2 (08:09→22:32)
--- NOTE | 2018-02-06 11:03 | PDOC PROGRESS REPORT ---
Subjective Progress Note for:: 02/06/18 Subjective:: The patient is a pleasant 57-year-old with mild cognitive deficits. She presented to the emergency room with altered mental status and hypothermia. She is being treated for a bacterial infection of unknown origin and she had evidence of sepsis at the time of admission. She has been receiving IV Zosyn and her white blood cell count is improving and her hypothermia has resolved. When I went to see the patient today she states that she has a very bad headache. She states her ears are stopped up and she feels a little dizzy. She has had no chest pain or shortness of breath. No heart palpitations. She has had no nausea or vomiting but states that she developed rather severe abdominal pain overnight. She states the pain is in the middle of her abdomen and is a constant pain. She reports that she has not had a bowel movement in a few days but she has not been eating much. She reports no dysuria, frequency or hematuria Reason For Visit: HYPOTHERMIA, ACUTE ENCEPHALOPATHY Physical Exam Vital Signs: Temp Pulse Resp BP Pulse Ox 98.5 F 77 18 128/83 H 97 02/06/18 07:34 02/06/18 07:34 02/06/18 07:34 02/06/18 07:34 02/06/18 07:34 Intake & Output 02/05/18 02/06/18 02/07/18 06:59 06:59 06:59 Intake Total 2799 3595 1000 Output Total 1550 3550 Balance 1249 45 1000 Weight 106.7 kg 103 kg General appearance: PRESENT: no acute distress, morbidly obese, well-developed, well-nourished, other - She looks as if she feels quite poorly Head exam: PRESENT: atraumatic, normocephalic Mouth exam: PRESENT: moist, tongue midline Respiratory exam: PRESENT: clear to auscultation jb. ABSENT: rales, rhonchi, wheezes Cardiovascular exam: PRESENT: RRR. ABSENT: diastolic murmur, rubs, systolic murmur GI/Abdominal exam: PRESENT: guarding, normal bowel sounds, soft, tenderness - She is quite tender to palpation with some mild guarding in the right upper quadrant in the periumbilical region.. ABSENT: distended, mass, organolmegaly, rebound Rectal exam: PRESENT: deferred Extremities exam: PRESENT: full ROM. ABSENT: calf tenderness, clubbing, pedal edema Neurological exam: PRESENT: alert, awake, oriented to person, oriented to place , oriented to time, oriented to situation, CN II-XII grossly intact. ABSENT: motor sensory deficit Psychiatric exam: PRESENT: appropriate affect, normal mood. ABSENT: homicidal ideation, suicidal ideation Skin exam: PRESENT: dry, intact, warm. ABSENT: cyanosis, rash Results Laboratory Results: 02/05/18 06:13 02/06/18 04:06 02/06/18 02/06/18 04:06 04:06 Sodium 143.0 Potassium 3.4 L Chloride 109 H Carbon Dioxide 25 Anion Gap 9 BUN 7 Creatinine 0.61 Est GFR ( Amer) > 60 Est GFR (Non-Af Amer) > 60 Glucose 94 Calcium 8.7 Phosphorus 3.1 02/03/18 02/04/18 02/04/18 21:20 04:17 04:49 Creatine Kinase 40 CK-MB (CK-2) 0.45 Troponin I < 0.012 < 0.012 02/04/18 02/04/18 11:03 11:03 Creatine Kinase 37 CK-MB (CK-2) 0.48 Troponin I < 0.012 Impressions: Chest X-Ray 02/03/18 14:58 IMPRESSION: NO ACUTE RADIOGRAPHIC FINDING IN THE CHEST. Head CT 02/04/18 00:00 IMPRESSION: 1. No acute intracranial abnormality identified. This exam was performed according to our departmental dose-optimization program, which includes automated exposure control, adjustment of the mA and/or kV according to patient size and/or use of iterative reconstruction technique. Head MRI 02/04/18 00:00 IMPRESSION: No acute or suspicious intracranial abnormality. Mild small vessel disease is suspected. EVIDENCE OF ACUTE STROKE: NO. Assessment & Plan - Diagnosis (1) Acute encephalopathy Is this a current diagnosis for this admission?: Yes Plan: Patient's encephalopathy seems to be improving. The patient still looks as if she feels quite poorly. Her encephalopathy is likely due to a bacterial infection of unknown origin. (2) Sepsis Is this a current diagnosis for this admission?: Yes Plan: Present on admission manifested by hypothermia, leukocytosis, acute encephalopathy, tachycardia and tachypnea. At this point her leukocytosis is trending downwards. Her hypothermia has resolved. Her encephalopathy is improving. Continue therapy as outlined below. (3) Bacterial infection Is this a current diagnosis for this admission?: Yes Plan: At this point she has a bacterial infection of unknown origin. The patient is quite tender to palpation over the maxillary sinuses. She states her ears are stopped up and she is dizzy this morning. She possibly could have sinusitis. She should be adequately covered with Zosyn. Also the patient is having new abdominal pain this morning. I am concerned that we may be missing something in the abdomen. I am going to get a CT scan of the abdomen with IV contrast today for further evaluation. In the meantime she will continue IV Zosyn. This is day #3 of treatment. Her sepsis symptoms are resolving with treatment. (4) Hypothermia Is this a current diagnosis for this admission?: Yes Plan: Likely secondary to sepsis. Resolved (5) Abdominal pain Is this a current diagnosis for this admission?: Yes Plan: I am going to get a CT scan of the abdomen and pelvis for further evaluation today. I will make sure she is on a probiotic. (6) Vertigo Is this a current diagnosis for this admission?: Yes Plan: I am going to start the patient on meclizine. Also I am going to start her on Flonase. (7) Morbid obesity Is this a current diagnosis for this admission?: Yes Plan: Certainly she would benefit from weight loss. Dietary discretion is advised (8) Anemia Is this a current diagnosis for this admission?: Yes Plan: She has had a precipitous drop in hemoglobin due to hemodilution. She was not anemic at the beginning of this hospitalization. (9) Cognitive deficits Is this a current diagnosis for this admission?: Yes Plan: The patient has very mild cognitive deficits present since at baseline. (10) Hypokalemia Is this a current diagnosis for this admission?: Yes Plan: Repleted. She will have a level drawn tomorrow morning. (11) Full code status Is this a current diagnosis for this admission?: Yes - Time Time Spent with patient: 35 or more minutes - Inpatient Certification Medical Necessity: Need Close Monitoring Due to Risk of Patient Decompensation, Need For IV Fluids, Need for IV Antibiotics, Other - Inpatient hospitalization remains necessary. The patient is being treated for a bacterial infection of unknown origin. She still is not feeling well. She needs further workup to include a CT scan of the abdomen and pelvis. Were also going to treat her for vertigo today. Hopefully she will improve and we can get her discharged to home in the next day or 2.
[2018-02-06] MEDS: LACTOBACILLUS ACIDOPHILUS 250 MG TAB PO SCH ×2 (12:27→18:05)
[2018-02-06] MEDS: MECLIZINE HCL 25 MG TABLET PO PRN (12:27)
[2018-02-06] MEDS: FLUTICASONE NASAL SPRAY 50 MCG/SPRY 120 SPRAY/16 GM NASL SCH ×2 (12:29→22:33)
--- NOTE | 2018-02-06 15:17 | RADIOLOGY REPORT (SQ) ---
EXAM DESCRIPTION: CT ABD/PELVIS WITH IV ONLY COMPLETED DATE/TIME: 02/06/2018 2:41 pm REASON FOR STUDY: Cdiff, abd pain, r/ retroperitoneal bleed COMPARISON: None. TECHNIQUE: CT scan of the abdomen and pelvis performed using helical scanning technique with dynamic intravenous contrast injection. No oral contrast. Images reviewed with lung, soft tissue, and bone windows. Reconstructed coronal and sagittal MPR images reviewed. Delayed images for evaluation of the urinary system also acquired. All images stored on PACS. All CT scanners at this facility use dose modulation, iterative reconstruction, and/or weight based d osing when appropriate to reduce radiation dose to as low as reasonably achievable (ALARA). [facility]: Dose Right [facility]: CareDose [facility]: Dose Right [facility]: Teradose 4D [facility]: Relcy CONTRAST TYPE AND DOSE: contrast/concentration: Isovue 370.00 mg/ml; Total Contrast Delivered: 99.0 ml; Total Saline Delivered: 41.7 ml RENAL FUNCTION: Not available RADIATION DOSE: CT Rad equipment meets quality standard of care and radiation dose reduction techniq ues were employed. CTDIvol: 14.8 - 17.7 mGy. DLP: 1736 mGy-cm.. LIMITATIONS: None. FINDINGS: LOWER CHEST: Tiny left pleural effusion is identified. LIVER: Normal size. No masses. No dilated ducts. There is mild fatty infiltration of the liver. SPLEEN: Normal size. No focal lesions. PANCREAS: No masses. No significant calcifications. No adjacent inflammation or peripancreatic fluid collections. Pancreatic duct not dilated. GALLBLADDER: Rim calcified gallstones are identified. No inflammatory changes to suggest cholecystiti s. ADRENAL GLANDS: No significant masses or asymmetry. RIGHT KIDNEY AND URETER: No solid masses. No significant calcifications. No hydronephrosis or hyd roureter. LEFT KIDNEY AND URETER: No solid masses. 3.3 cm in diameter renal cyst is identified extending from the lower pole. No significant calcifications. No hydronephrosis or hydroureter. AORTA AND VESSELS: No aneurysm. No dissection. Renal arteries, SMA, celiac without stenosis. RETROPERITONEUM: No retroperitoneal adenopathy, hemorrhage or masses. BOWEL AND PERITONEAL CAVITY: No masses or inflammatory changes. No free fluid or peritoneal masses. APPENDIX: Normal. PELVIS: No mass. No free fluid. Bladder catheter is identified. ABDOMINAL WALL: No masses. Small umbilical hernia is identified containing fat. BONES: No significant or acute findings. OTHER: No other significant finding. IMPRESSION: No evidence for a retroperitoneal mass or bleed. Rim calcified gallstones are identifie d. Other findings as noted above TECHNICAL DOCUMENTATION: JOB ID: [id number] Quality ID # [id number]: Final reports with documentation of one or more dose reduction techniques (e.g., Au tomated exposure control, adjustment of the mA and/or kV according to patient size, use of iterative reconstruction technique) 2010 [employer]- All Rights Reserved Reading location - IP/workstation name: [email or web address]
[2018-02-07] MEDS: PIPERACILLIN SODIUM/TAZOBACTAM 3.375 GM in NORMAL SALINE 100 ML IV SCH ×3 (01:57→18:17)
[2018-02-07 04:41] LABS: ABSOLUTE BASOPHILS # (AUTO) 0.1 10^3/uL (0.0-0.2); ABSOLUTE EOSINOPHILS # (AUTO) 0.6 10^3/uL (0.0-0.6); ABSOLUTE LYMPHOCYTES (AUTO) 1.9 10^3/uL (0.5-4.7); ABSOLUTE MONOCYTES (AUTO) 0.8 10^3/uL (0.1-1.4); ABSOLUTE NEUT (AUTO) 7.6 10^3/uL (1.7-8.2); BASOPHILS % (AUTO) 0.8 % (0-2); EOSINOPHILS % (AUTO) 5.4 % (0-6); HEMATOCRIT 35.6 % (36.0-47.0); HEMOGLOBIN 11.9 g/dL (12.0-15.5); LYMPHOCYTES % (AUTO) 17.6 % (13-45); MEAN CORPUSCULAR HEMOGLOBIN 27.3 pg (27.0-33.4); MEAN CORPUSCULAR HGB CONC 33.4 g/dL (32.0-36.0); MEAN CORPUSCULAR VOLUME 82 fl (80-97); PLATELET COUNT 260 10^3/uL (150-450); RED BLOOD COUNT 4.37 10^6/uL (3.72-5.28); RED CELL DISTRIBUTION WIDTH 14.4 % (11.5-14.0); SEGMENTED NEUTROPHILS % (AUTO) 69.2 % (42-78); TOTAL CELLS COUNTED % (AUTO) 100 %
[2018-02-07 05:01] LABS: ANION GAP 10 (5-19); BLOOD UREA NITROGEN 7 mg/dL (7-20); CALCIUM 8.9 mg/dL (8.4-10.2); CARBON DIOXIDE 24 mmol/L (22-30); CHLORIDE 108 mmol/L (98-107); GLUCOSE 90 mg/dL (75-110); POTASSIUM 3.5 mmol/L (3.6-5.0); SODIUM 142.4 mmol/L (137-145)
[2018-02-07] MEDS: LANSOPRAZOLE 30 MG TAB.RAP.DR PO SCH ×2 (06:22→16:39)
[2018-02-07] MEDS ORDERED: POTASSIUM CHLORIDE 10 MEQ CAPSULE.ER PO ONE (07:27)
[2018-02-07] MEDS: ACETAMINOPHEN 325 MG TABLET PO PRN ×2 (09:37→18:29)
[2018-02-07] MEDS: LACTOBACILLUS ACIDOPHILUS 250 MG TAB PO SCH ×2 (09:38→18:18)
[2018-02-07] MEDS: FLUTICASONE NASAL SPRAY 50 MCG/SPRY 120 SPRAY/16 GM NASL SCH ×2 (09:38→21:46)
[2018-02-07] MEDS: NORMAL SALINE 1000 ML 1,000 ML IV PRN (09:39)
[2018-02-07] MEDS: BUTALB/ACETAMINOPHEN/CAFFEINE 1 TAB EACH PO PRN (11:44)
[2018-02-07] MEDS: MECLIZINE HCL 25 MG TABLET PO PRN (16:39)
--- NOTE | 2018-02-07 18:31 | PDOC PROGRESS REPORT ---
Subjective Progress Note for:: 02/07/18 Subjective:: The patient is a pleasant 57-year-old with mild cognitive deficits. She presented to the emergency room with altered mental status and hypothermia. She is being treated for a bacterial infection of unknown origin and she had evidence of sepsis at the time of admission. She has been receiving IV Zosyn and her white blood cell count is improving and her hypothermia has resolved. Yesterday the patient was complaining of bilateral ear pain. She also was complaining of dizziness. She states that she was having some abdominal pain. I did obtain a CT scan of the abdomen and pelvis. The pain she was complaining about was in the left side of her abdomen. The CT scan was negative except for rim calcified gallstones. There was no evidence of cholecystitis. Today when I saw the patient she is not complaining of abdominal pain. She still complaining of bilateral ear pain. She also states that she feels off balance and somewhat dizzy. She denies fever or shaking chills. No chest pain , shortness of breath or cough. No nausea or vomiting. She has loose stools but no yumiko diarrhea. She thinks it is antibiotic at this point. She denies dysuria, frequency or hematuria. Reason For Visit: HYPOTHERMIA, ACUTE ENCEPHALOPATHY Physical Exam Vital Signs: Temp Pulse Resp BP Pulse Ox 98.3 F 79 16 147/86 H 99 02/07/18 16:02 02/07/18 16:02 02/07/18 16:02 02/07/18 16:02 02/07/18 16:02 Intake & Output 02/06/18 02/07/18 02/08/18 06:59 06:59 06:59 Intake Total 3595 3523 1465 Output Total 3550 4650 500 Balance 45 -1127 965 Weight 103 kg 103.1 kg General appearance: PRESENT: no acute distress, morbidly obese, well-developed, well-nourished Head exam: PRESENT: atraumatic, normocephalic Ear exam: PRESENT: TM's normal bilaterally, other - Both ears were examined. She has some erythema in both of the ear canals bilaterally. Mouth exam: PRESENT: moist, tongue midline Neck exam: ABSENT: carotid bruit, JVD, lymphadenopathy, thyromegaly Respiratory exam: PRESENT: clear to auscultation jb. ABSENT: rales, rhonchi, wheezes Cardiovascular exam: PRESENT: RRR. ABSENT: diastolic murmur, rubs, systolic murmur Pulses: PRESENT: normal dorsalis pedis pul GI/Abdominal exam: PRESENT: normal bowel sounds, soft. ABSENT: distended, guarding, mass, organolmegaly, rebound, tenderness Rectal exam: PRESENT: deferred Extremities exam: PRESENT: full ROM. ABSENT: calf tenderness, clubbing, pedal edema Neurological exam: PRESENT: alert, awake, oriented to person, oriented to place , oriented to time, oriented to situation, CN II-XII grossly intact. ABSENT: motor sensory deficit Psychiatric exam: PRESENT: appropriate affect, normal mood. ABSENT: homicidal ideation, suicidal ideation Skin exam: PRESENT: dry, intact, warm. ABSENT: cyanosis, rash Results Laboratory Results: 02/07/18 03:55 02/07/18 03:55 02/07/18 02/07/18 03:55 03:55 WBC 11.0 H RBC 4.37 Hgb 11.9 L Hct 35.6 L MCV 82 MCH 27.3 MCHC 33.4 RDW 14.4 H Plt Count 260 Seg Neutrophils % 69.2 Lymphocytes % 17.6 Monocytes % 7.0 Eosinophils % 5.4 Basophils % 0.8 Absolute Neutrophils 7.6 Absolute Lymphocytes 1.9 Absolute Monocytes 0.8 Absolute Eosinophils 0.6 Absolute Basophils 0.1 Sodium 142.4 Potassium 3.5 L Chloride 108 H Carbon Dioxide 24 Anion Gap 10 BUN 7 Creatinine 0.62 Est GFR ( Amer) > 60 Est GFR (Non-Af Amer) > 60 Glucose 90 Calcium 8.9 Magnesium 2.1 02/03/18 02/04/18 02/04/18 21:20 04:17 04:49 Creatine Kinase 40 CK-MB (CK-2) 0.45 Troponin I < 0.012 < 0.012 02/04/18 02/04/18 11:03 11:03 Creatine Kinase 37 CK-MB (CK-2) 0.48 Troponin I < 0.012 Impressions: Chest X-Ray 02/03/18 14:58 IMPRESSION: NO ACUTE RADIOGRAPHIC FINDING IN THE CHEST. Head CT 02/04/18 00:00 IMPRESSION: 1. No acute intracranial abnormality identified. This exam was performed according to our departmental dose-optimization program, which includes automated exposure control, adjustment of the mA and/or kV according to patient size and/or use of iterative reconstruction technique. Head MRI 02/04/18 00:00 IMPRESSION: No acute or suspicious intracranial abnormality. Mild small vessel disease is suspected. EVIDENCE OF ACUTE STROKE: NO. Abdomen/Pelvis CT 02/06/18 10:53 IMPRESSION: No evidence for a retroperitoneal mass or bleed. Rim calcified gallstones are identified. Other findings as noted above Assessment & Plan - Diagnosis (1) Acute encephalopathy Is this a current diagnosis for this admission?: Yes Plan: Patient's encephalopathy seems to be improving. The patient seems somewhat improved today.. Her encephalopathy is likely due to a bacterial infection of unknown origin. She does seem to be improving with IV antibiotic therapy. (2) Sepsis Qualifiers: Sepsis type: sepsis due to unspecified organism Qualified Code(s): A41.9 - Sepsis, unspecified organism Is this a current diagnosis for this admission?: Yes Plan: Present on admission manifested by hypothermia, leukocytosis, acute encephalopathy, tachycardia and tachypnea. At this point her leukocytosis is trending downwards. Her hypothermia has resolved. Her encephalopathy is improving. Continue therapy as outlined below. (3) Bacterial infection Is this a current diagnosis for this admission?: Yes Plan: At this point she has a bacterial infection of unknown origin. The patient is quite tender to palpation over the maxillary sinuses. She states her ears are stopped up and she is dizzy this morning. She possibly could have sinusitis. She should be adequately covered with Zosyn. Yesterday she was started on Flonase. She continues to complain of dizziness. She does have erythema in both of her ear canals. I am going to start her on Ciprodex otic solution to see if that helps. The CT scan of the abdomen and pelvis was negative except for the above-noted gallstones. She has no evidence of cholecystitis. (4) Hypothermia Is this a current diagnosis for this admission?: Yes Plan: Likely secondary to sepsis. Resolved (5) Abdominal pain Is this a current diagnosis for this admission?: Yes Plan: Resolved. CT scan of the abdomen and pelvis was unremarkable except for some gallstones. Her pain was not located over the right upper quadrant. It was on the left flank. (6) Vertigo Is this a current diagnosis for this admission?: Yes Plan: I am going to schedule the patient's meclizine to see if that helps. (7) Morbid obesity Is this a current diagnosis for this admission?: Yes Plan: Certainly she would benefit from weight loss. Dietary discretion is advised (8) Anemia Is this a current diagnosis for this admission?: Yes Plan: She has had a precipitous drop in hemoglobin due to hemodilution. She was not anemic at the beginning of this hospitalization. Her hemoglobin is quite stable (9) Cognitive deficits Is this a current diagnosis for this admission?: Yes Plan: The patient has very mild cognitive deficits present since at baseline. (10) Hypokalemia Is this a current diagnosis for this admission?: Yes Plan: Repleted. She will have a level drawn tomorrow morning. (11) Full code status Is this a current diagnosis for this admission?: Yes - Time Time Spent with patient: 25-34 minutes - Inpatient Certification Medical Necessity: Other - The patient is improving. I am hopeful that she can be discharged home in the next 24-48 hours. We are removing her Thomas catheter today. I am going to make sure physical therapy is seeing her. Hopefully she can be transitioned over to oral antibiotics and sent home soon.
[2018-02-07] MEDS: MECLIZINE HCL 25 MG TABLET PO SCH (21:45)
[2018-02-07] MEDS: CIPROFLOXACIN HCL/DEXAMETH OTIC DROP 7.5 ML AU SCH (22:02)
[2018-02-08] MEDS: PIPERACILLIN SODIUM/TAZOBACTAM 3.375 GM in NORMAL SALINE 100 ML IV SCH ×2 (02:00→09:24)
[2018-02-08 04:58] LABS: ANION GAP 12 (5-19); BLOOD UREA NITROGEN 7 mg/dL (7-20); CALCIUM 9.3 mg/dL (8.4-10.2); CARBON DIOXIDE 24 mmol/L (22-30); CHLORIDE 109 mmol/L (98-107); GLUCOSE 92 mg/dL (75-110); POTASSIUM 3.5 mmol/L (3.6-5.0); SODIUM 144.7 mmol/L (137-145)
[2018-02-08] MEDS: MECLIZINE HCL 25 MG TABLET PO SCH ×3 (05:53→22:03)
[2018-02-08] MEDS: LANSOPRAZOLE 30 MG TAB.RAP.DR PO SCH ×2 (05:53→17:55)
[2018-02-08 06:24] LABS: ABSOLUTE BASOPHILS # (AUTO) 0.1 10^3/uL (0.0-0.2); ABSOLUTE EOSINOPHILS # (AUTO) 0.7 10^3/uL (0.0-0.6); ABSOLUTE MONOCYTES (AUTO) 0.7 10^3/uL (0.1-1.4); ABSOLUTE NEUT (AUTO) 7.4 10^3/uL (1.7-8.2); BASOPHILS % (AUTO) 0.7 % (0-2); EOSINOPHILS % (AUTO) 6.4 % (0-6); HEMOGLOBIN 12.6 g/dL (12.0-15.5); LYMPHOCYTES % (AUTO) 18.7 % (13-45); MEAN CORPUSCULAR HEMOGLOBIN 27.3 pg (27.0-33.4); MEAN CORPUSCULAR HGB CONC 33.3 g/dL (32.0-36.0); MEAN CORPUSCULAR VOLUME 82 fl (80-97); MONOCYTES % (AUTO) 6.3 % (3-13); PLATELET COUNT 297 10^3/uL (150-450); RED BLOOD COUNT 4.63 10^6/uL (3.72-5.28); RED CELL DISTRIBUTION WIDTH 14.3 % (11.5-14.0); SEGMENTED NEUTROPHILS % (AUTO) 67.9 % (42-78); TOTAL CELLS COUNTED % (AUTO) 100 %; WHITE BLOOD COUNT 10.8 10^3/uL (4.0-10.5)
[2018-02-08] MEDS: LACTOBACILLUS ACIDOPHILUS 250 MG TAB PO SCH ×2 (09:32→17:55)
[2018-02-08] MEDS: CIPROFLOXACIN HCL/DEXAMETH OTIC DROP 7.5 ML AU SCH ×2 (09:32→22:04)
[2018-02-08] MEDS: FLUTICASONE NASAL SPRAY 50 MCG/SPRY 120 SPRAY/16 GM NASL SCH ×2 (09:33→22:03)
[2018-02-08] MEDS: ACETAMINOPHEN 325 MG TABLET PO PRN (09:35)
[2018-02-08] MEDS: BUTALB/ACETAMINOPHEN/CAFFEINE 1 TAB EACH PO PRN (11:27)
--- NOTE | 2018-02-08 17:29 | PDOC PROGRESS REPORT ---
Subjective Progress Note for:: 02/08/18 Subjective:: Patient is lying comfortably in bed she still has some issues with his ear pain. her white count improved. She does not feel that she is strong enough to go home today and thinking about going home tomorrow. Reason For Visit: HYPOTHERMIA, ACUTE ENCEPHALOPATHY Physical Exam Vital Signs: Temp Pulse Resp BP Pulse Ox 98.0 F 79 19 122/66 97 02/08/18 15:28 02/08/18 15:28 02/08/18 15:28 02/08/18 15:28 02/08/18 15:28 Intake & Output 02/07/18 02/08/18 02/09/18 06:59 06:59 06:59 Intake Total 3523 2951 355 Output Total 4650 2600 400 Balance -1127 351 -45 Weight 227 lb 4.745 oz 223 lb 15.834 oz Exam: Patient no acute distress Alert oriented to time place person No anxiety or depression Head atraumatic normocephalic Pupils are equal reactive Regular rate and rhythm Lungs clear no distress Abdomen nontender nondistended Neurological exam unremarkable Results Laboratory Results: 02/08/18 05:51 02/08/18 04:00 02/08/18 02/08/18 02/08/18 04:00 04:00 05:51 WBC Cancelled 10.8 H RBC Cancelled 4.63 Hgb Cancelled 12.6 Hct Cancelled 38.0 MCV Cancelled 82 MCH Cancelled 27.3 MCHC Cancelled 33.3 RDW Cancelled 14.3 H Plt Count Cancelled 297 Seg Neutrophils % Cancelled 67.9 Lymphocytes % Cancelled 18.7 Monocytes % Cancelled 6.3 Eosinophils % Cancelled 6.4 H Basophils % Cancelled 0.7 Absolute Neutrophils Cancelled 7.4 Absolute Lymphocytes Cancelled 2.0 Absolute Monocytes Cancelled 0.7 Absolute Eosinophils Cancelled 0.7 H Absolute Basophils Cancelled 0.1 Sodium 144.7 Potassium 3.5 L Chloride 109 H Carbon Dioxide 24 Anion Gap 12 BUN 7 Creatinine 0.62 Est GFR ( Amer) > 60 Est GFR (Non-Af Amer) > 60 Glucose 92 Calcium 9.3 Magnesium 2.1 02/03/18 02/04/18 02/04/18 21:20 04:17 04:49 Creatine Kinase 40 CK-MB (CK-2) 0.45 Troponin I < 0.012 < 0.012 02/04/18 02/04/18 11:03 11:03 Creatine Kinase 37 CK-MB (CK-2) 0.48 Troponin I < 0.012 Impressions: Chest X-Ray 02/03/18 14:58 IMPRESSION: NO ACUTE RADIOGRAPHIC FINDING IN THE CHEST. Head CT 02/04/18 00:00 IMPRESSION: 1. No acute intracranial abnormality identified. This exam was performed according to our departmental dose-optimization program, which includes automated exposure control, adjustment of the mA and/or kV according to patient size and/or use of iterative reconstruction technique. Head MRI 02/04/18 00:00 IMPRESSION: No acute or suspicious intracranial abnormality. Mild small vessel disease is suspected. EVIDENCE OF ACUTE STROKE: NO. Abdomen/Pelvis CT 02/06/18 10:53 IMPRESSION: No evidence for a retroperitoneal mass or bleed. Rim calcified gallstones are identified. Other findings as noted above Assessment & Plan - Diagnosis (1) Acute encephalopathy Is this a current diagnosis for this admission?: Yes Plan: This has been resolved (2) Sepsis Qualifiers: Sepsis type: sepsis due to unspecified organism Qualified Code(s): A41.9 - Sepsis, unspecified organism Is this a current diagnosis for this admission?: Yes Plan: Unclear etiology but appears to be improving Switch IV Zosyn to p.o. Augmentin Possible discharge tomorrow (3) Weakness Is this a current diagnosis for this admission?: Yes Plan: Seems to be improving (4) Hypothermia Is this a current diagnosis for this admission?: Yes Plan: Resolved (5) Cognitive deficits Is this a current diagnosis for this admission?: Yes Plan: Chronic developmental delay (6) Hypokalemia Is this a current diagnosis for this admission?: Yes Plan: Replace and stable (7) Morbid obesity Is this a current diagnosis for this admission?: Yes Plan: Patient was counseled
[2018-02-08] MEDS: AMOXICILLIN TR/POT CLAVULANATE 500-125 MG TAB PO SCH (17:55)
[2018-02-09] MEDS: AMOXICILLIN TR/POT CLAVULANATE 500-125 MG TAB PO SCH ×2 (02:22→09:21)
[2018-02-09] MEDS: LANSOPRAZOLE 30 MG TAB.RAP.DR PO SCH (06:07)
[2018-02-09] MEDS: MECLIZINE HCL 25 MG TABLET PO SCH ×2 (06:07→13:13)
[2018-02-09] MEDS: LACTOBACILLUS ACIDOPHILUS 250 MG TAB PO SCH (09:21)
[2018-02-09] MEDS: CIPROFLOXACIN HCL/DEXAMETH OTIC DROP 7.5 ML AU SCH (09:21)
[2018-02-09] MEDS: FLUTICASONE NASAL SPRAY 50 MCG/SPRY 120 SPRAY/16 GM NASL SCH (09:22)
[2018-02-09] MEDS: BUTALB/ACETAMINOPHEN/CAFFEINE 1 TAB EACH PO PRN (09:26)
--- NOTE | 2018-02-09 12:06 | PDOC DISCHARGE SUMMARY ---
General - Admit/Disc Date/PCP Admission Date/Primary Care Provider: 02/03/18 19:54 Discharge Date: 02/09/18 - Discharge Diagnosis (1) Acute encephalopathy Is this a current diagnosis for this admission?: Yes (2) Sepsis Is this a current diagnosis for this admission?: Yes (3) Weakness Is this a current diagnosis for this admission?: Yes (4) Hypothermia Is this a current diagnosis for this admission?: Yes (5) Cognitive deficits Is this a current diagnosis for this admission?: Yes (6) Hypokalemia Is this a current diagnosis for this admission?: Yes (7) Morbid obesity Is this a current diagnosis for this admission?: Yes - Additional Information Resuscitation Status: Full Code Discharge Diet: As Tolerated Discharge Activity: Activity As Tolerated Prescriptions: Amox Tr/Potassium Clavulanate [Augmentin "500" Tablet] 1 tab PO Q8A #9 tablet Lactobacillus Acidophilus [Bacid 250 mg Tablet] 500 mg PO BID #6 tab Home Medications: Albuterol Sulfate [Proair HFA Inhalation Aerosol 8.5 gm MDI] 2 puff IH QIDP PRN 02/04/18 Aspirin/Acetaminophen/Caffeine [Excedrin Extra Strength Caplet] 1 tab PO Q6HP PRN 02/04/18 Ibuprofen [Motrin 800 mg Tablet] 800 mg PO Q8HP PRN 02/04/18 Omeprazole 20 mg PO DAILY 02/04/18 Amox Tr/Potassium Clavulanate [Augmentin "500" Tablet] 1 tab PO Q8A #9 tablet 02/09/18 Lactobacillus Acidophilus [Bacid 250 mg Tablet] 500 mg PO BID #6 tab 02/09/18 History of Present Illness History of Present Illness: ABNER RAYMOND is a 57 year old female who has developmental delay. On the day of admission she felt diaphoresis and dizziness. She called her to pick her up and bring her to the hospital. She was discovered to be hypothermic and had leukocytosis. And apparently on admission she was confused and encephalopathic Hospital Course Hospital Course: He was treated with empiric IV antibiotics. Her cultures were all unremarkable. Chest x-ray did not show any infiltrates. CT scan of the head and MRI of the brain unremarkable. She was switched from IV Zosyn to p.o. Augmentin. Over her hospital course she improved clinically and her temperature was normal and her white count was also back to normal. She is stable for discharge was 3 more days of p.o. Augmentin. Physical Exam Vital Signs: Temp Pulse Resp BP Pulse Ox 98.0 F 76 16 136/87 H 99 02/09/18 08:11 02/09/18 08:11 02/09/18 08:11 02/09/18 08:11 02/09/18 08:11 Intake & Output 02/08/18 02/09/18 02/10/18 06:59 06:59 06:59 Intake Total 2951 1660 Output Total 2600 3000 Balance 351 -1340 Weight 223 lb 15.834 oz 217 lb 13.067 oz Exam: Patient no acute distress Alert oriented to time place person No anxiety or depression Head atraumatic normocephalic Pupils are equal reactive Regular rate and rhythm Lungs clear no distress Abdomen nontender nondistended Neurological exam unremarkable Results Laboratory Results: 02/08/18 05:51 02/08/18 04:00 02/03/18 02/04/18 02/04/18 21:20 04:17 04:49 Creatine Kinase 40 CK-MB (CK-2) 0.45 Troponin I < 0.012 < 0.012 02/04/18 02/04/18 11:03 11:03 Creatine Kinase 37 CK-MB (CK-2) 0.48 Troponin I < 0.012 Impressions: Chest X-Ray 02/03/18 14:58 IMPRESSION: NO ACUTE RADIOGRAPHIC FINDING IN THE CHEST. Head CT 02/04/18 00:00 IMPRESSION: 1. No acute intracranial abnormality identified. This exam was performed according to our departmental dose-optimization program, which includes automated exposure control, adjustment of the mA and/or kV according to patient size and/or use of iterative reconstruction technique. Head MRI 02/04/18 00:00 IMPRESSION: No acute or suspicious intracranial abnormality. Mild small vessel disease is suspected. EVIDENCE OF ACUTE STROKE: NO. Abdomen/Pelvis CT 02/06/18 10:53 IMPRESSION: No evidence for a retroperitoneal mass or bleed. Rim calcified gallstones are identified. Other findings as noted above Qualifiers - * PATIENT BEING DISCHARGED WITH ANY OF THE FOLLOWING DIAGNOSIS: No
[2018-02-09 13:06] VITALS: BP 124/79
== END 2018-02-09 13:45 | disposition home or self-care (01) | DRG 871 ==
LOC: ER 13:53 → EH 19:54 → 3N 23:12
PROVIDERS: ADMIT Internal Medicine; ATTEND Internal Medicine
PROC: 009U3ZX Drainage of Spinal Canal, Percutaneous Approach, Diagnostic (ICD-10-PCS; principal; 2018-02-03)
PROC: B01BZZZ Fluoroscopy of Spinal Cord (ICD-10-PCS; 2018-02-03)
DX: A41.9 Sepsis, unspecified organism (principal); G93.40 Encephalopathy, unspecified; T68.XXXA Hypothermia, initial encounter; R41.89 Other symptoms and signs involving cognitive functions and awareness; E87.6 Hypokalemia; E66.01 Morbid (severe) obesity due to excess calories; Z68.37 Body mass index [BMI] 37.0-37.9, adult; G43.909 Migraine, unspecified, not intractable, without status migrainosus; K21.9 Gastro-esophageal reflux disease without esophagitis; R53.1 Weakness; R42 Dizziness and giddiness; D64.9 Anemia, unspecified; K80.80 Other cholelithiasis without obstruction; Z88.6 Allergy status to analgesic agent; Z80.9 Family history of malignant neoplasm, unspecified; Z81.0 Family history of intellectual disabilities
CPT/HCPCS: 36415; 70450; 70551; 71045; 74177; 80048; 80053; 80307; 81001; 82550; 82553; 82803; 82962; 83036; 83605; 83690; 83735; 84100; 84443; 84484; 85025; 85027; 85610; 85730; 87040; 87070; 87086; 87205; 89050; 93005; 93010; 96361; 96374; 99285; J0696; J1644; J2405; J2543; J3370; J3490; J7030; J7060

== ENCOUNTER 2019-05-17 12:39 | Emergency (ER) | payer MEDICARE, MEDICAID ==
[2019-05-17 12:48] VITALS: BP 138/85
[2019-05-17] MEDS ORDERED: DIPH/PERTUSS(ACELL)/TETANUS VAC/PF 0.5 ML SYR (>=10YO) IM ONE (13:20)
--- NOTE | 2019-05-17 13:20 | ER Document Report ---
ED Medical Screen (RME) - General Chief Complaint: Dog Bite Stated Complaint: DOG BITE Time Seen by Provider: 05/17/19 13:16 Mode of Arrival: Ambulatory Information source: Patient Notes: 58-year-old female presents to ED for a dog bite to the left thigh yesterday but 4:30 in the afternoon. Patient states the neighbor's dog bit her she does not know if that shots are up-to-date. She states they did call animal control and they did come and get the dog. She states she is not allergic to any antibiotics. States she does not know when she had her last tetanus. She states she is not on any blood thinners and she does have a large bruised area to the left thigh 2 puncture wounds. She denies smoking drinking or using of illicit drugs. She states she does not have any past medical or surgical history. She is postmenopausal. I have greeted and performed a rapid initial assessment of this patient. A comprehensive ED assessment and evaluation of the patient, analysis of test r esults and completion of medical decision making process will be conducted by an additional ED providers. TRAVEL OUTSIDE OF THE [place] IN LAST 30 DAYS: No - Related Data Allergies/Adverse Reactions: hydrocodone Allergy (Intermediate, Verified 05/17/19 13:12) Itching Past Medical History - Past Medical History Cardiac Medical History: Denies: Hx Congestive Heart Failure, Hx Coronary Artery Disease Pulmonary Medical History: Denies: Hx Asthma, Hx COPD Neurological Medical History: Reports: Hx Migraine Renal/ Medical History: Denies: Hx Peritoneal Dialysis GI Medical History: Reports: Hx Gastroesophageal Reflux Disease Past Surgical History: Reports: Hx Neurologic Surgery - Back, Hx Oral Surgery, Hx Orthopedic Surgery - Patient had some type of back surgery for herniated disc Physical Exam - Vital signs Vitals: Temp Pulse Resp BP Pulse Ox 97.9 F 78 18 138/85 H 97 05/17/19 12:47 05/17/19 12:47 05/17/19 12:47 05/17/19 12:47 05/17/19 12:47 Course - Vital Signs Vital signs: Temp Pulse Resp BP Pulse Ox 97.9 F 78 18 138/85 H 97 05/17/19 12:47 05/17/19 12:47 05/17/19 12:47 05/17/19 12:47 05/17/19 12:47
--- NOTE | 2019-05-17 14:31 | ER Document Report ---
HPI - HPI Patient complains to provider of: dog bite Time Seen by Provider: 05/17/19 13:16 Pain Level: 4 Context: 58-year-old female presents the emergency department for a dog bite on the left anterior thigh that happened Monday. Patient states that she wanted to seek treatment because she has not gotten feedback from animal control after they told her to be 24 hours to determine rabies status. Patient states there is a large area of bruising and 2 puncture sites. It is a neighborhood, domesticated dog. Patient is able to bear weight. No dizziness, no neck stiffness, no confusion, no erythema to the site - REPRODUCTIVE Reproductive: DENIES: : Past Medical History - General Information source: Patient - Social History Smoking Status: Never Smoker Chew tobacco use (# tins/day): No Drug Abuse: None Family History: Reviewed & Not Pertinent Patient has suicidal ideation: No Patient has homicidal ideation: No - Past Medical History Cardiac Medical History: Denies: Hx Congestive Heart Failure, Hx Coronary Artery Disease Pulmonary Medical History: Denies: Hx Asthma, Hx COPD Neurological Medical History: Reports: Hx Migraine Renal/ Medical History: Denies: Hx Peritoneal Dialysis GI Medical History: Reports: Hx Gastroesophageal Reflux Disease Past Surgical History: Reports: Hx Neurologic Surgery - Back, Hx Oral Surgery, Hx Orthopedic Surgery - Patient had some type of back surgery for herniated disc Vertical Provider Document - CONSTITUTIONAL Notes: PHYSICAL EXAMINATION: Reviewed vital signs and charting by RN GENERAL: Alert, interacts well. No acute distress. HEAD: Normocephalic, atraumatic. EYES: Pupils equal and round. Extraocular movements intact. ENT: Oral mucosa moist, tongue midline. NECK: Full range of motion. Trachea midline. LUNGS: Clear to auscultation bilaterally, no wheezes, rales, or rhonchi. No respiratory distress. HEART: Regular rate and rhythm. No murmur ABDOMEN: soft, non-tender. No distention. Bowel sounds present EXTREMITIES: Moves all 4 extremities spontaneously. Healing puncture wound on the anterior left thigh with 2 dog bite [place] that is scabbed over, no surroundi ng erythema, no purulent discharge SKIN: Warm, dry, normal turgor. No rashes or lesions noted. - INFECTION CONTROL TRAVEL OUTSIDE OF THE [place] IN LAST 30 DAYS: No Course - Re-evaluation Re-evalutation: 11/08/19 14:32 Patient presents with a dog bite that is 48 hours old. 2 puncture wounds in the anterior left thigh. Will place her on Augmentin for 5 days for prophylaxis. I told her to follow-up with animal control and give her strict return precautions. She is stable for discharge. - Vital Signs Vital signs: Temp Pulse Resp BP Pulse Ox 97.9 F 78 18 138/85 H 97 05/17/19 12:47 05/17/19 12:47 05/17/19 12:47 05/17/19 12:47 05/17/19 12:47 Discharge - Discharge Clinical Impression: Bruising Dog bite Qualifiers: Encounter type: initial encounter Qualified Code(s): W54.0XXA - Bitten by dog, initial encounter Condition: Good Disposition: HOME, SELF-CARE Additional Instructions: Please monitor very closely for any signs of infection from your dog bite including spreading redness from the area, pus from the wound, or worsening pain. Clean the area twice daily with soap and water and then apply topical antibiotic ointment. Please take all the antibiotics that you were prescribed until they are gone. Follow-up with your primary care physician as needed.
== END 2019-05-17 14:43 | disposition home or self-care (01) ==
LOC: ER 12:39
DX: S70.12XA Contusion of left thigh, initial encounter (principal); W54.0XXA Bitten by dog, initial encounter
CPT/HCPCS: 90471; 90715; 99283

== ENCOUNTER 2019-09-13 13:11 | Emergency (ER) | payer MEDICARE, MEDICAID ==
[2019-09-13 13:26] VITALS: BP 132/85
[2019-09-13] MEDS ORDERED: KETOROLAC TROMETHAMINE 60 MG/2 ML SDV IM ONE (13:41)
[2019-09-13] MEDS ORDERED: DIAZEPAM 5 MG TABLET PO ONE (13:42)
--- NOTE | 2019-09-13 13:44 | ER Document Report ---
HPI - HPI Time Seen by Provider: 09/13/19 13:38 Notes: CHIEF COMPLAINT: Low back injury 3 days ago HPI: 58-year-old female with prior history of disc herniation surgery in the lumbar back presenting with new back injury 3 days ago. Patient was getting out of the shower and was bending over when she went to stand up had sudden sharp pain in the low back region. Describes it as being in the middle of the back, does not radiate into the legs, no incontinence of urine or bowel. Patient rep orts that Percocet makes her throw up but she has no allergy to hydrocodone or other codeine's ROS: See HPI - all other systems were reviewed and are otherwise negative Constitutional: no fever : no dysuria Integumentary: no rash Allergy: no hives Musculoskeletal: no extremity pain or swelling, positive back pain Neurological: no numbness/tingling, no weakness MEDICATIONS: I agree with the patient medications as charted by the RN. ALLERGIES: I agree with the allergies as charted by the RN. PAST MEDICAL HISTORY/PAST SURGICAL HISTORY: Reviewed and agree as charted by RN. SOCIAL HISTORY: Reviewed and agree as charted by RN. FAMILY HISTORY: No significant familial comorbid conditions directly related to patient complaint EXAM: Reviewed vital signs as charted by RN. CONSTITUTIONAL: Alert and oriented and responds appropriately to questions. Well-appearing; well-nourished, mild distress secondary to pain HEAD: Normocephalic; atraumatic EYES: PERRL; Conjunctivae clear, sclerae non-icteric ENT: normal nose; no rhinorrhea; moist mucous membranes NECK: Supple without meningismus; non-tender; no cervical lymphadenopathy, no masses CARD: RRR; no murmurs, no clicks, no rubs, no gallops; symmetric distal pulses RESP: Normal chest excursion without splinting or tachypnea; breath sounds clear and equal bilaterally; no wheezes, no rhonchi, no rales ABD/GI: Normal bowel sounds; non-distended; soft, non-tender, no rebound, no guarding; no palpable organomegaly or masses. BACK: The back appears normal and is nontender to palpation in the thoracic back but mildly tender to palpation in the upper lumbar back and lumbar paraspinous musculature, there is no CVA tenderness EXT: Normal ROM in all joints; non-tender to palpation; no cyanosis, no effusions, no edema SKIN: Normal color for age and race; warm; dry; good turgor; no acute lesions noted NEURO: Moves all extremities equally; Motor and sensory function intact. Strength equal 5/5 bilateral lower extremities. Sensation intact and equal bilateral lower extremities. Straight leg raise is negative. No saddle anesthesia on exam. DTRs 2+ intact and equal bilateral lower extremities. PSYCH: The patient's mood and manner are appropriate. Grooming and personal hygiene are appropriate. MDM: 58-year-old female with injury to the lower lumbar back seems to be midline and paraspinous so will obtain x-ray to evaluate for compression. She does have history of prior back surgery. No saddle anesthesia no incontinence to suggest cauda equina - REPRODUCTIVE Reproductive: DENIES: : Past Medical History - Social History Smoking Status: Unknown if Ever Smoked Family History: Reviewed & Not Pertinent - Past Medical History Cardiac Medical History: Denies: Hx Congestive Heart Failure, Hx Coronary Artery Disease Pulmonary Medical History: Denies: Hx Asthma, Hx COPD Neurological Medical History: Reports: Hx Migraine Renal/ Medical History: Denies: Hx Peritoneal Dialysis GI Medical History: Reports: Hx Gastroesophageal Reflux Disease Past Surgical History: Reports: Hx Neurologic Surgery - Back, Hx Oral Surgery, Hx Orthopedic Surgery - Patient had some type of back surgery for herniated disc Vertical Provider Document - INFECTION CONTROL TRAVEL OUTSIDE OF THE [place] IN LAST 30 DAYS: No Course - Re-evaluation Re-evalutation: 09/13/19 14:33 X-ray imaging does not show evidence of fracture, will discharge home with pain management, she has no allergy to Tylenol, has been able to take Vicodin with no difficulty - Vital Signs Vital signs: Temp Pulse Resp BP Pulse Ox 98.3 F 91 16 132/85 H 97 09/13/19 13:24 09/13/19 13:24 09/13/19 13:24 09/13/19 13:24 09/13/19 13:24 Discharge - Discharge Clinical Impression: Acute low back pain Qualifiers: Back pain laterality: midline Sciatica presence: without sciatica Qualified Code(s): M54.5 - Low back pain Condition: Stable Disposition: HOME, SELF-CARE Additional Instructions: 1. Warm heat to the lower back twice daily 2. no heavy lifting for 2-3 days 3. medications as prescribed, no driving on narcotics or muscle relaxers 4. follow up with orthopedics for further evaluation and treatment as needed for any continuing pain or problems, call for appt. 5. return to the ER for any onset of incontinence of urine, fever > 101 or worsening condition 6. X-ray imaging did not show evidence of a fracture or broken bone today Prescriptions: Cyclobenzaprine HCl [Flexeril 10 mg Tablet] 10 mg PO TIDP PRN #15 tab PRN Reason: Hydrocodone/Acetaminophen [[place] 5-325 mg Tablet] 1 tab PO Q4 PRN #15 tablet PRN Reason: Diclofenac Sodium [Voltaren 50 Mg Tablet.] 50 mg PO BID #20 tablet. Referrals: NANNETTE CHOPRA PA-C [Primary Care Provider] - Follow up as needed XANDER PETERSON DO [ACTIVE STAFF] - Follow up as needed
--- NOTE | 2019-09-13 14:31 | RADIOLOGY REPORT (SQ) ---
EXAM DESCRIPTION: L SPINE WHOLE COMPLETED DATE/TIME: 09/13/2019 2:16 pm REASON FOR STUDY: low back injury COMPARISON: 02/06/2018 NUMBER OF VIEWS: Five views including obliques. TECHNIQUE: AP, lateral, oblique, and sacral radiographic images acquired of the lumbar spine. LIMITATIONS: None. FINDINGS: MINERALIZATION: Normal. SEGMENTATION: Normal. No transitional anatomy. ALIGNMENT: Normal. VERTEBRAE: Maintained height. No fracture or worrisome bone lesion. DISCS: Mild multilevel endplate change with preserved disc height. POSTERIOR ELEMENTS: No fracture. Lower lumbar facet arthropathy, mild. HARDWARE: None in the spine. PARASPINAL SOFT TISSUES: Normal. PELVIS: Intact as visualized. No fractures or worrisome bone lesions. SI joints intact. OTHER: Calcified gallstones. IMPRESSION: 1. No evidence of acute bony abnormality of the lumbar spine. 2. Cholelithiasis. TECHNICAL DOCUMENTATION: JOB ID: [id number] 2010 [employer]- All Rights Reserved Reading location - IP/workstation name: [email or web address]
== END 2019-09-13 15:06 | disposition home or self-care (01) ==
LOC: ER 13:11
DX: M54.5 Low back pain (principal)
CPT/HCPCS: 99283; 96372; 72110; A9270; J1885